=== PATIENT | male | born 1995 | race African-American/Black ===

== ENCOUNTER 2020-03-18 10:26 | Outpatient (REF) | payer OTHER, SELFPAY ==
[2020-03-18 14:08] LABS: Glucose Urine UA NEG (NEG); Leukocyte Esterase Urine NEG (NEG); Nitrite Urine NEG (NEG); Urine Blood NEG (NEG); Urine Ketones NEG (NEG); Urine Protein NEG (NEG-TRACE)
[2020-03-18 14:21] LABS: Appearance Urine CLEAR; Color Urine YELLOW
== END 2020-03-18 10:27 | disposition home or self-care (01) ==
LOC: HO.LAB 10:26
PROVIDERS: PCP Internal Medicine; Visit Provider Internal Medicine
DX: I10 Essential (primary) hypertension (principal); R35.0 Frequency of micturition; R36.9 Urethral discharge, unspecified; Z11.8 Encounter for screening for other infectious and parasitic diseases; Z11.3 Encounter for screening for infections with a predominantly sexual mode of transmission
CPT/HCPCS: 81003

== ENCOUNTER 2024-03-02 20:13 | Emergency (ER) | payer OTHER, SELFPAY ==
--- NOTE | ~2024-03-02 | XR_ITS ---
CLINICAL HISTORY: trauma 4 view right elbow Comparison: None Findings: Radial head fracture. Normal alignment. No significant loss of joint space, osteophytes, or erosions. Large joint effusion. No radiopaque foreign body. IMPRESSION: 1. Radial head fracture with elbow joint effusion This document has been electronically signed by: Marlon Nayak MD on 03/02/2024 21:54:15
--- NOTE | ~2024-03-02 | XR_ITS ---
CLINICAL HISTORY: trauma 2 view right forearm Comparison: None Findings: Radial head fracture. Elbow joint effusion. No significant arthritic change. No radiopaque foreign body. IMPRESSION: 1. Radial head fracture with elbow joint effusion This document has been electronically signed by: Marlon Nayak MD on 03/02/2024 21:55:06
[2024-03-02 20:42] VITALS: BP 120/79; PULSE 82; RESP 16; TEMP 37.2; O2SAT 98
--- NOTE | 2024-03-02 20:47 | ED.GENADULT ---
HPI - General Adult General Chief complaint: Extremity Injury, Upper Stated complaint: right elbow inj Time Seen by Provider: 03/02/24 23:43 History of Present Illness ED Provider: Bree TAYLOR narrative: The patient is a 28-year-old male who injured his right arm playing basketball. He fell injured his right arm landing on an outstretched right hand. He has pain primarily in the right elbow. Related Data Previous Rx's ?Medication ?Instructions ?Recorded morphine 15 mg immediate release 15 mg PO Q6H PRN pain #12 tabs 03/03/24 tablet Allergies Allergy/AdvReac Type Severity Reaction Status Date / Time No Known Allergies Allergy Verified 03/02/24 20:47 Review of Systems Review of Systems: Yes all other systems are reviewed and are negative [facility] Past Medical History Medical History No significant past medical history Surgical History No significant past surgical history Family History Family History Other Family history non-contributory Social History Social History (Updated 03/31/20 @ 10:44 by Casey Yañez PA-C) Alcohol intake: current Alcohol intake frequency: holidays/special occasions only Substance Use Type: Marijuana Advance Directives: No Advance Directives Information Provided: No Do you have a plan to hurt others: No Plan Current occupation: [employer] ( [employer] ) Physical Exam ED Vital Signs: Vital Signs - 24 hr 03/02/24 20:42 03/03/24 00:48 Temperature 99.0 F 0 F L Pulse Rate 82 78 Respiratory Rate 16 16 Blood Pressure 120/79 118/72 Pulse Oximetry 98 98 Oxygen Delivery Method Room Air Room Air BMI result Body Mass Index 20.0 Const Other: The patient is a slim, athletic looking 28-year-old who was awake and alert, pleasant cooperative [facility] Head: Yes normal to inspection Face and sinus: Yes normal facial exam Mouth: Normal oral and palatal mucosa present and moist mucous membranes Eyes General: appearance normal, both eyes and all related structures Neck Neck: Yes full ROM Resp Effort & Inspection: normal respiratory effort Skin Other: The skin is intact. Neuro Other: The patient is awake and alert with normal mental status. He has normal sensation and motor function of the right hand. Extrem Other: The patient has tenderness around the right elbow and pain with manipulation of the right elbow. Possibly some mild soft tissue swelling of the elbow but no gross swelling. The patient has pain with flexion and extension of the elbow and with supination. The hand is neurovascularly intact. Course Course Course Narrative: RME, this is a rapid medical exam performed by Pito Kraus please refer to primary provider for complete H&P- 28-year-old male presents for evaluation of right elbow pain. The patient fell while playing basketball about an hour prior to arrival. He is unable to bend in the right elbow. Plan for x-rays of the right elbow and right forearm. There was no head trauma or loss of consciousness Medications Administered Discontinued Medications Generic Name Dose Route Start Last Admin Trade Name Freq PRN Reason Stop Dose Admin Acetaminophen 975 mg 03/02/24 20:49 03/02/24 20:50 Acetaminophen 325 Mg Tablet PO 03/02/24 20:50 975 mg ONCE ONE Administration Ketorolac Tromethamine 30 mg 03/03/24 00:05 03/03/24 00:17 Ketorolac Tromethamine 30 Mg/Ml Vial IM 03/03/24 00:06 30 mg ONCE ONE Administration Procedures Orthopedic Splinting/Casting Injury #1: Side: right Upper Extremity Injury Location: elbow Upper Extremity Immobilizer: posterior splint (long arm) Additional Comments: Orthoglass, cast padding, and padmini basndages Medical Decision Making Medical Decision Making MDM Narrative: The patient is a 28-year-old male who presents with a right elbow injury when he fell playing basketball. He has an obvious effusion on the lateral x-ray of his right elbow. There is also a nondisplaced radial head fracture apparent. I explained the injury to the patient. The patient was placed in a posterior splint and given a sling. He lives on [facility]. He was therefore given a disc of his x-rays and advised to contact a local Orthopedic office for follow-up in the next week.. a prescription for morphine tablets was provided. Discharge Plan Discharge Clinical Impression: Closed fracture of head of right radius Patient Disposition: Home, Self-Care Instructions: Elbow Fracture (ED) Additional Instructions: You have a fracture of your right radial head. This is the part of the radius bone at the elbow. The fracture is not displaced. Nondisplaced radial head fracture is usually do very well. Primary treatment is to rest the elbow for several days.. Please wear the splint and the sling. I would recommend keeping the splint on for at least several days. After several days you can try removing the splint and see if the sling alone is sufficient. You will need to see an orthopedist in the next week or 2. Please bring the disc of your x-rays to the orthopedist if you get an appointment on [facility]. If you stay in this area you can see the [place] orthopedists. For pain you may use acetaminophen (Tylenol). Take 2 extra-strength tablets at a time up to 3 times per day. Additionally I have sent a prescription for morphine tablets that you may use if needed. Prescriptions: New morphine 15 mg tablet 15 mg PO Q6H PRN (Reason: pain) Qty: 12 0RF Rx Instructions: Partial Fill upon patient request. Referrals: [facility] [place] [facility] [Provider Group] (Nondisplaced radial head fracture) Interventions: ED Discharge Assessment Last Done: 03/03/24 00:48 Discharge Date/Time: 03/03/24 00:50 Print Language: Bel[place]ian
[2024-03-02] MEDS: Acetaminophen 325 MG TABLET 975 MG PO (20:50)
[2024-03-03] MEDS: Ketorolac Tromethamine 30 MG/ML VIAL IM (00:17)
--- NOTE | 2024-03-03 00:24 | PC.NURSE ---
MD at bedside, splint and sling applied. Pt medicated per MAY.
[2024-03-03 00:48] VITALS: BP 118/72; PULSE 78; RESP 16; TEMP -17.7; TEMP 0; O2SAT 98
== END 2024-03-03 00:50 | disposition home or self-care (01) ==
PROVIDERS: Emergency Provider Emergency Medicine
DX: S52.121A Displaced fracture of head of right radius, initial encounter for closed fracture (principal); W19.XXXA Unspecified fall, initial encounter; Y93.67 Activity, basketball; Y92.9 Unspecified place or not applicable; Y99.9 Unspecified external cause status; M25.521 Pain in right elbow
CPT/HCPCS: 29105; 73080; 73090; 96372; 99283; 99284; J1885

== ENCOUNTER → 2024-03-02 20:48 | Outpatient (BNV) | payer SELFPAY | PROVIDERS: Visit Provider Specialist | DX: S52.121A Displaced fracture of head of right radius, initial encounter for closed fracture (principal) | CPT/HCPCS: 73080; 73090 ==

== ENCOUNTER 2024-03-09 09:19 | Outpatient (REF) | payer OTHER, SELFPAY ==
--- NOTE | ~2024-03-09 | XR_ITS ---
EXAMINATION: XR ELBOW 3 VIEWS RIGHT HISTORY: M25.529 - Pain in unspecified elbow COMPARISON: Comparison is made with the prior examination dated 03/02/2024. FINDINGS: Three views of the right elbow are submitted. Osseous mineralization is normal. There is a nondisplaced fracture of the radial head as seen previously. The fracture line remains visible. No additional fracture is seen. There is no dislocation. The joint spaces are preserved. There is a joint effusion with elevation of the anterior and posterior fat pads. XR/XR elbow RT min 3V IMPRESSION: Nondisplaced fracture of the radial head with an associated joint effusion. Electronically signed by: Merrick Rivera MD 03/11/2024 03:41 PM KAYLAN
--- OUTSIDE RECORDS SUMMARY | 2024-03-09 09:47 | XMS_ITS | Continuity of Care Document ---
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 It does not include entries that were removed or entered in error. Problem Status Onset Date Problem Type Date of Resolution Comments Source Alcohol abuse, uncomplicated Active 11/12/2016 Condition DoD Cannabis use, unspecified, uncomplicated Active 11/12/2016 Condition DoD Cocaine use, unspecified, uncomplicated Active 11/12/2016 Condition DoD Allergies, Adverse Reactions, Alerts Combined list of allergies from Department of Defense and Veterans Affairs facilities. It does not include entries that were removed or entered in error. Substance Category Reaction Severity Reaction type Status Date Reported Comments Source No Known Allergies Drug allergy (disorder) active 11/23/2014 Valentin [place] Immunizations Combined list of available immunizations from the Department of Defense and Veterans Affairs facilities. Immunization Series Date Given Administered By Site Reaction Lot Number CVX Code Drug Wad Impregnator Status Comments Source COVID-19 (Biomoda), VECTOR-NR, RS-AD26, PF, 0.5 ML 1 2020 212 complet ed JSN; [id number]; 1 [facility] typhoid Vi capsular polysaccharid e vaccine 1 2016 BJ KHOURY [id number] Sanofi Pasteur (PMC) complet ed typhoid Vi capsular polysacch aride vaccine DoD Influenza, injectable, quadrivalent, preservative free 1 2016 [id number] Seqirus (SEQ) comple t ed Influenza , injectabl e, quadrival ent, preservat junior free DoD Influenza, injectable, MDCK, preservative free, quadrivalent 2016 GORSLINE, () Not Given Influenza , injectabl e, MDCK, preservat junior free, quadrival ent DoD influenza, seasonal, injectable 2015 [id number] Unknown complet ed influenza , seasonal, injectabl e 01/03/16 Given Ambulat ory Pharmac y Influenza, seasonal, injectable 1 2015 [id number] 141 Unknown (UNK) comple t ed Influenza , seasonal, injectabl e DoD hepatitis B adult vaccine 2015 Abhi vidal Arm [id number] 43 GlaxoSmithKli ne complet ed hepatitis B adult vaccine 05/24/15 Given Ambulat ory Pharmac y hepatitis B vaccine, adult dosage 1 2015 GORDY RAMÍREZ [id number] 43 SmithKline (SKB) complet ed hepatitis B vaccine, adult dosage DoD influenza, live, intranasal,qu adrivalent 2014 [id number] 149 [email or web address] comple t ed influenza , live, intranasa l,quadriv alent 12/22/14 Given Ambulat ory Pharmac y influenza, live, intranasal, quadrivalent 1 2014 [id number] 149 MedIBankofpoker[employer]. (MED) complet ed influenza , live, intranasa l, quadrival ent DoD hepatitis B pediatric/ado lescent 2014 [id number] 08 GlaxoSmithKli ne complet ed hepatitis B pediatric /adolesce nt 11/23/14 Given Ambulat ory Pharmac y hepatitis B vaccine, pediatric or pediatric/ado lescent dosage 2 2014 [id number] 08 SmithKline (SKB) complet ed hepatitis B vaccine, pediatric or pediatric /adolesce nt dosage DoD adenovirus vaccine, live 2014 [id number] 143 Teva Pharmaceutica ls complet ed adenoviru s vaccine, live 09/20/14 Given Ambulat ory Pharmac y hepatitis B pediatric/ado lescent 2014 [id number] 08 GlaxoSmithKli ne complet ed hepatitis B pediatric /adolesce nt 09/20/14 Given Ambulat ory Pharmac y measles, mumps and rubella virus vaccine 1 2014 UNK 03 Unknown (UNK) Not Given measles, mumps and rubella virus vaccine DoD hepatitis B vaccine, pediatric or pediatric/ado lescent dosage 1 2014 [id number] 08 SmithKline (SKB) complet ed hepatitis B vaccine, pediatric or pediatric /adolesce nt dosage DoD varicella virus vaccine 1 2014 UNK 21 Unknown (UNK) Not Given varicella virus vaccine DoD hepatitis A vaccine, adult dosage 1 2014 UNK 52 Unknown (UNK) Not Given hepatitis A vaccine, adult dosage DoD Adenovirus, type 4 and type 7, live, oral 1 2014 [id number] 143 [employer] (BRR) complet ed Adenoviru s, type 4 and type 7, live, oral DoD tetanus, diphtheria, acellular pertu is 2014 [id number] 115 sanofi pasteur complet ed tetanus, diphtheri a, acellular pertussis 09/16/14 Given Ambulat ory Pharmac y meningococcal A,C,Y,W-135 (MCV4P) 2014 [id number] 114 GlaxoSmithKli ne complet ed meningoco ccal A,C,Y,W-1 35 (MCV4P) 09/16/14 Given Ambulat ory Pharmac y poliovirus vaccine, inactivated 2014 [id number] 10 sanofi pasteur complet ed polioviru s vaccine, inactivat ed 09/16/14 Given Ambulat ory Pharmac y poliovirus vaccine, inactivated 1 2014 [id number] 10 Sanofi Pasteur (PMC) complet ed polioviru s vaccine, inactivat ed DoD meningococcal polysaccharid e (groups A, C, Y and W-135) diphtheria toxoid conjugate vaccine (MCV4P) 1 2014 [id number] 114 SmithKline (SKB) complet ed meningoco ccal polysacch aride (groups A, C, Y and W-135) diphtheri a toxoid conjugate vaccine (MCV4P) DoD tetanus toxoid, reduced diphtheria toxoid, and acellular pertu is vaccine, adsorbed 1 2014 [id number] 115 Sanofi Pasteur (PMC) complet ed tetanus toxoid, reduced diphtheri a toxoid, and acellular pertussis vaccine, adsorbed DoD Vital Signs Combined list of inpatient and outpatient Vital Signs from Department of Defense and Veterans Affairs, ranging from 12 months to all on record, depending upon the facility. Vital Sign Value Date Comments Source No data available for this section Ambulatory Pharmacy Encounters Combined list of: 1) Encounters from Department of Veterans Affairs facilities going back up to thelast 18 months. 2) Encounters from the Department of Defense facilities going back up to 280 months. Location Location Details Encounter Type Encounter Number Reason For Visit Attending Provider ADM Date DC Date Status Disposition Source [place] [place] OUTPATIENT [id number] MARCELINO BURGOS 09/16 Released w/o Limitations [place]) [place] OUTPATIENT [id number] Notes Entered by: RAMÓN ROGER 17 Sep 2014 0756 ------- ------- ------- ------- -- hearing test RAMÓN YATES 09/17 Released w/o Limitations [place] ) [place] [id number] Notes Entered by: TORSTEN WILKERSON RA 20 Sep 2014 0613 ------- ------- ------- ------- -- IMM TRANG MENDIETA 09/20 Released w/o Limitations [place] ) [place]IENT [id number] Notes Entered by: KELECHI CASTAÑEDA 23 Nov 2014 0813 ------- ------- ------- ------- -- IMM-HEP B(P) ROSALBA SANCHEZ 11/23 Released w/o Limitations [place] OUTPATIENT [id number] Notes Entered by: KELECHI CASTAÑEDA 22 Dec 2014 1012 ------- ------- ------- ------- -- IMM-FLU MIST LEAH THOMPSON 12/22 Released w/o Limitations [place]) REANNA Salmon([facility]) OUTPATIENT [id number] Notes Entered by: SA HAMLET RAMÍREZ 24 May 2015 1048 ------- ------- ------- ------- -- ENGERIX B (ADULT) DESIREEGORDY Alexander 05/23 Released w/o Limitations Av [facility] REANNA Malcolm([facility] l [facility]ams [facility]) REANNA Salmon([facility] [address]) OUTPATIENT [id number] Notes Entered by: Alexander CONNOLLY 22 Jun 2015 1617 ------- ------- ------- ------- -- STEPHIE GALVAN 06/22 Released w/o Limitations Av [facility] REANNA Malcolm([facility] [address]) REANNA Salmon([facility]) OUTPATIENT [id number] Notes Entered by: EDMUNDO MALIK 13 Sep 2015 1111 ------- ------- ------- ------- -- p/u BARBRA Guy 09/12 Released w/o Limitations Av [facility] REANNA Malcolm([facility]) REANNA Salmon([facility]) OUTPATIENT [id number] REE / CL FITTING BELL MARSHALL 10/06 Released w/o Limitations Av [facility] REANNA Malcolm([facility]) REANNA Salmon([facility]) OUTPATIENT [id number] Notes Entered by: EDMUNDO MALIK 17 Oct 2015 1355 ------- ------- ------- ------- -- p/u glasses JOAN DAWSON 10/16 Released w/o Limitations REANNA Bain([facility]) REANNA Salmon([facility] [address]) OUTPATIENT [id number] ALEXIS Truong I 10/18 Released w/o Limitations REANNA Bain([facility] [address]) REANNA Salmon([facility] [address]) TELE CONSULT [id number] Notes Entered by: FR KAJAL ARRIAGA I 17 Apr 2016 1454 ------- ------- ------- ------- -- STI janiyai corry lab results ALEXIS ARRIAGA I 04/17 REANNA Bain([place] [address]) REANNA Salmon([place] [address]) TELE CONSULT [id number] Notes Entered by: LEATHA MAURER 25 Jul 2016 1304 ------- ------- ------- ------- -- STD Check ROOPA MAURER 07/25 REANNA Bain([place] [address]) REANNA Salmon([place] [address]) OUTPATIENT [id number] [facility] STEPHIE STRINGER 08/18 Released w/o Limitations REANNA Bain([place] [address]) REANNA Salmon([place] [address]) OUTPATIENT [id number] [place] STD CHECK STEPHIE STRINGER 08/24 Released w/o Limitations REANNA Bain([place] [address]) REANNA Salmon([place] [address]) OUTPATIENT [id number] Notes Entered by: MELITON FELDMAN 27 Sep 2016 1050 ------- ------- ------- ------- -- Annual Audiogr am MARIIA MAYO 09/27 Released w/o Limitations REANNA Bain([place] [address]) REANNA Salmon([place] [address]) OUTPATIENT [id number] Notes Entered by: MELITON FELDMAN 13 Nov 2016 1347 ------- ------- ------- ------- -- Annual Audiogr am MARIIA MAYO 11/13 Released w/o Limitations [place] [place] [address]) Av [facility] Valentin [place]) OUTPATIENT [id number] Chapter (Separa tiyahaira) DARLENE CERNA 11/14 Released w/o Limitations [place] [facility] [place]) Av [facility] [place] [address]) OUTPATIENT [id number] CHAPTER ANDREY LUCIA 11/14 Released w/o Limitations [place] [facility] [place] [address]) Av [facility] Valentin [place]idal [place] OUTPATIENT [id number] ree/clx OSCAR ROLLINS 11/20 Released w/o Limitations Av [facility] Valentin [place]) Av [facility] [place] [address]) OUTPATIENT [id number] PDHA/SR P CARMEL CASE 02/05 [facility] [place] [place] [address]) Procedures Combined list of: 1) Procedures from Department of Veterans Affairs facilities going back up to thelast 18 months, not all VA non-surgical procedures are included; 2) All procedures from the Department of Defense facilities. Procedure Procedure Type Code Date Perfomer Comments Sourc e No data available for this section Ambulato ry Pharmacy Psychiatric Evaluation Explanation Of Exam Results Psychiatric Evaluation Explanation Of Exam Results 50022 2017 CARLOS ESCAMILLA [facility] Computerized Corneal Topography Computerized Corneal Topography 87233 2016 OSCAR ROLLINS Prescription And Fitting Bilateral Corneal Lenses (Not For Aphakia) Prescription And Fitting Bilateral Corneal Lenses (Not For Aphakia) 93507 2016 OSCAR ROLLINS Determination Of Refractive State Determination Of Refractive State 08154 2016 OSCAR ROLLINS Ophthalmological Prior Patient Start Comprehensive Care Ophthalmological Prior Patient Start Comprehensive Care 73107 2016 OSCAR ROLLINS Psychometric Emotional / Behavioral A e [facility] Psychometric Emotional / Behavioral Assessment 58108 2016 YARELYDAYRON GREENE [place] Psychiatric Diagnostic Evaluation Psychiatric Diagnostic Evaluation 54589 2016 DAYRON FONTANA [place] Visual Function Screening Visual Function Screening 76589 2016 DARLENE CERNA [facility] Psychometric Emotional / Behavioral A e ment Psychometric Emotional / Behavioral Assessment 94613 2016 CARLOS ESCAMILLA [place] Psychiatric Diagnostic Evaluation Psychiatric Diagnostic Evaluation 55296 2016 ALTEPETERCARLOS Alexander [place] Threshold Audiogram (Pure Tone) Automated Threshold Audiogram (Pure Tone) Automated 0208T 2016 MARIIA MAYO Physician Supervised Services Provision Of Special Supplies Physician Supervised Services Provision Of Special Supplies 61688 2016 MARIIA MAYO Physician Supervised Services Provision Of Special Supplies Physician Supervised Services Provision Of Special Supplies 35353 2016 MARIIA MAYO Threshold Audiogram (Pure Tone) Automated Threshold Audiogram (Pure Tone) Automated 0208T 2016 MARIIA MAYO Screening Test Of Visual Acuity, Quantitative, Bilateral Screening Test Of Visual Acuity, Quantitative, Bilateral 97150 2016 STEPHIE STRINGER Venous Pre ure Venous Pressure 15321 2016 STEPHIE STRINGER Computerized Corneal Topography Computerized Corneal Topography 61677 2015 BELL MARSHALL Prescription And Fitting Bilateral Corneal Lenses (Not For Aphakia) Prescription And Fitting Bilateral Corneal Lenses (Not For Aphakia) 64373 2015 BELL MARSHALL Spectacles Services Fitting Monofocal Except For Aphakia Spectacles Services Fitting Monofocal Except For Aphakia 61714 2015 BELL MARSHALL Determination Of Refractive State Determination Of Refractive State 31040 2015 BELL MARSHALL Ophthalmological New Patient Start Comprehensive Care Ophthalmological New Patient Start Comprehensive Care 76200 2015 BELL MARSHALL Screening Test Of Visual Acuity, Quantitative, Bilateral Screening Test Of Visual Acuity, Quantitative, Bilateral 62903 2015 STEPHIE STRINGER Venous Pre ure Venous Pressure 62389 2015 STEPHIE STRINGER Hepatitis B Vaccine (Active) Adult Dosage Hepatitis B Vaccine (Active) Adult Dosage 80021 2015 DESIREE, GORDY A Hep B - Adult; Series #: 1; 1.0 mL; IM; Left Arm; [facility] [employer]; Lot: [id number]; VIS given (Brianna: 04/05/11). DoD Immunization Administration By Injection, One Vaccine Immunization Administration By Injection, One Vaccine 461602015 GORDY RAMÍREZ DoD Influenza Virus Vaccine Live Attenuated Intranasal Quadrivalent Influenza Virus Vaccine Live Attenuated Intranasal Quadrivalent 38589 2014 LEAH THOMPSON [facility] Immunization Admin By Intranasal / Oral Route One Vaccine Immunization Admin By Intranasal / Oral Route One Vaccine 42776 2014 LEAH THOMPSON [facility] Hepatitis B Vaccine (Active); Pediatric/Adolesce nt 3 Dose Schedule Hepatitis B Vaccine (Active); Pediatric/Adolesce nt 3 Dose Schedule 97148 2014 NYA SHEIKH [facility] Immunization Administration By Injection, One Vaccine Immunization Administration By Injection, One Vaccine 695192014 NYA SHEIKH [facility] Injection, penicillin g benzathine, 100,000 units 2014 TRANG MENDIETA Visit for an IM injection of 1.2 million/units per 2 mL of Bicillin L-A (Penicillin G Benxathine injectable suspension). Was given in the Left upper quadrant, left buttock. Patient was observed for 15 min with no adverse reactions. DoD Immunization Administration By Injection, One Vaccine Immunization Administration By Injection, One Vaccine 458582014 TRANG MENDIETA [facility] Immunization Administration By Injection, Each Additional Vaccine Immunization Administration By Injection, Each Additional Vaccine [id number] TRANG MENDIETA [facility] Tdap Vaccine Tdap Vaccine 963162014 TRANG MENDIETA Visit for an IM injection of 0.5mL of Boostrix (Tetanus and Diphtheria Toxoids and Acellular Pertussis). Was given in the Right Deltoid. Patient was observed for 15 min with no adverse reactions. [facility] Meningococcal Polysaccharide Diphtheria Toxoid Conjugate Vaccine 2014 TRANG MENDIETA Visit for an IM injection of 0.5mL of Meningococcal Vaccine (Menactra). Was given in the Left Deltoid. Patient was observed for 15 min with no adverse reactions. DoD Vaccines Viral Polio, Inactivated Vaccines Viral Polio, Inactivated 043022014 TRANG MENDIETA Visit for an IM injection of 0.5mL of IPOL (Poliovirus Vaccine Inactivated). Was given in the Right Deltoid. Patient was observed for 15 min with no adverse reactions. [facility] Hep B Vaccine (Active); Adolescent (2 Dose Schedule) Hep B Vaccine (Active); Adolescent (2 Dose Schedule) 77360 2014 TRANG MENDIETA Visit for an IM injection of 0.5mL of Hepatitis B (Engerix-B) pediatric dose. Was given in the Right Deltoid. Patient was observed for 15 min with no adverse reactions. [facility] Immunization Admin Intranasal / Oral Each Additional Vaccine Immunization Admin Intranasal / Oral Each Additional Vaccine 96386 2014 TRANG MENDIETA [facility] Vaccines Adenovirus Type 4 Live, For Oral Use Vaccines Adenovirus Type 4 Live, For Oral Use 22049 2014 TRANG MENDIETA A single vaccine dose adminstered orally. [facility] Vaccines Adenovirus Type 7 Live, For Oral Use Vaccines Adenovirus Type 7 Live, For Oral Use 89932 2014 TRANG MENDIETA A single vaccine dose adminstered orally. [facility] Physician Supervised Injection Intramuscular Antibiotic Physician Supervised Injection Intramuscular Antibiotic 97800 2014 TRANG MENDIETA [facility] Threshold Audiogram (Pure Tone) Automated Threshold Audiogram (Pure Tone) Automated 0208T 2014 RAMÓN YATES [facility] INFLUENZA VIRUS VACCINE, QUADRIVALENT, LIVE (LAIV4), FOR INTRANASAL USE 2014 [facility] HEPATITIS B VACCINE (HEPB), PEDIATRIC/ADOLESCE NT DOSAGE, 3 DOSE SCHEDULE, FOR INTRAMUSCULAR USE 2014 [facility] INJECTION, PENICILLIN G BENZATHINE, 100,000 UNITS 2014 [facility] PURE TONE AUDIOMETRY (THRESHOLD), AUTOMATED; AIR ONLY 2014 [facility] INTERPRETATION OR EXPLANATION OF RESULTS OF PSYCHIATRIC, OTH MEDICAL EXAMS/PROCEDURES, OR OTH ACCUMULATED DATA TO FAMILY OR OTH RESPONSIBLE PERSONS,OR ADVISING THEM HOW TO ASSIST PATIENT 2017 [facility] COMPUTERIZED CORNEAL TOPOGRAPHY, UNILATERAL OR BILATERAL, WITH INTERPRETATION AND REPORT 2016 [facility] BRIEF EMOTIONAL/BEHAVIOR AL ASSESSMENT (EG, DEPRESSION INVENTORY, ATTENTION-DEFICIT/ HYPERACTIVITY DISORDER [ADHD] SCALE), WITH SCORING AND DOCUMENTATION, PER STANDARDIZED INSTRUMENT 2016 [facility] VIS FUNCT SCREEN,AUTOMAT/RAFAT I-AUTOMAT BILAT QUANT DETERM VISUAL ACUITY,OCULAR ALIGN,COLOR VISION,PSEUDOISOCH ROMAT PLATES,& FIELD VIS (MAY INC ALL/SOME SCRN DETERM FOR CONTRAST SENSITIV,VIS UND GLARE) 2016 DoD SUPP &MATERIAL (EXCEPT SPECTACLE),PROVID, THE PHYS/OTH QUALIFIED HEALTH STACKER TENDER OVER &ABOVE THOSE USUALLY INCLD W THE OFFICE VISIT/OTH SER RENDERED (LIST DRUG,TRAYS,SUPP,OR MATERIAL PROVID) 2016 DoD BRIEF EMOTIONAL/BEHAVIOR AL ASSESSMENT (EG, DEPRESSION INVENTORY, ATTENTION-DEFICIT/ HYPERACTIVITY DISORDER [ADHD] SCALE), WITH SCORING AND DOCUMENTATION, PER STANDARDIZED INSTRUMENT 2016 DoD SUPP &MATERIAL (EXCEPT SPECTACLE),PROVID, THE PHYS/OTH QUALIFIED HEALTH STACKER TENDER OVER &ABOVE THOSE USUALLY INCLD W THE OFFICE VISIT/OTH SER RENDERED (LIST DRUG,TRAYS,SUPP,OR MATERIAL PROVID) 2016 DoD SCREENING TEST OF VISUAL ACUITY, QUANTITATIVE, BILATERAL 2016 DoD COMPUTERIZED CORNEAL TOPOGRAPHY, UNILATERAL OR BILATERAL, WITH INTERPRETATION AND REPORT 2015 DoD DETERMINATION OF VENOUS PRESSURE 2015 DoD IMMUNIZATION ADMINISTRATION (INCLUDES PERCUTANEOUS, INTRADERMAL, SUBCUTANEOUS, OR INTRAMUSCULAR INJECTIONS); 1 VACCINE (SINGLE OR COMBINATION VACCINE/TOXOID) 2015 DoD Social History Combined list of available smoking, tobacco, and other social history from Department of Defense and Veterans Affairs facilities. Social History Type Response Date Comment Sourc e Male 12/17/2016 Ambulatory Pha rmacy Sexual Orientation Ambula tory Pharmacy Gender identity Ambulator y Pharmacy This section is an empty soc ial history section. DoD Assessment and Plan Combined list of future care activities from Department of Defense and Veterans Affairs facilities (e.g., assessment and plan notes, appointments, orders, and referrals). Additional future care activities may be listed in the Plan of Care section. Result Assessment and Plan Date Source Assessment and Plan No data available for this section 03/09/2024 Ambulatory Pharmacy Functional Status Combined list of recent functional and cognitive assessments recorded at Department of Defense and Veterans Affairs (VA).VA Functional [place] Measurement (FIM) Scale: 1 = Total Assistance (Subject = 0% +), 2 = Maximal Assistance (Subject = 25% +), 3 = Moderate Assistance (Subject = 50% +), 4 = Minimal Assistance (Subject = 75% +), 5 = Supervision, 6 = Modified [place] (Device), 7 = Complete [place] (Timely, Safely). Assessment Date/Time Source Assessment Type Assessment Skill Assessment Score Assessment Details No data available for this section
== END 2024-03-09 09:20 | disposition home or self-care (01) ==
LOC: HO.HOSX 09:19
PROVIDERS: Visit Provider Physician Assistant
DX: M25.521 Pain in right elbow (principal); S52.121A Displaced fracture of head of right radius, initial encounter for closed fracture
CPT/HCPCS: 73080; 99202

== ENCOUNTER 2024-03-09 10:56 | Outpatient (AMB) | payer OTHER, SELFPAY ==
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
--- OUTSIDE RECORDS SUMMARY | 2024-03-09 12:27 | XMS_ITS | Continuity of Care Document ---
Author Name [facility] Organization [facility] Care Team Providers Care Fixed Income Trading Vice President Name Role Phone [facility] Unavailable Unavailable Problems [...] Drug allergy (disorder) active 11/23/2014 Valentin Garcia [place] Immunizations Combined list of available immunizations from the Department of Defense and Veterans Affairs facilities. 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 Status Comments Source COVID-19 ([employer]), VECTOR-NR, RS-AD26, PF, 0.5 ML 1 2020 212 complet ed JSN; [id number]; 1 [facility] typhoid Vi capsular polysaccharid e vaccine 1 2016 BJ KHOURY [id number] 101 Sanofi Pasteur (PMC) complet ed typhoid Vi capsular polysacch aride vaccine DoD Influenza, injectable, quadrivalent, preservative free 1 2016 [id number] Seqirus (SEQ) comple t ed Influenza , injectabl e, quadrival ent, preservat junior free DoD Influenza, injectable, MDCK, preservative free, quadrivalent 2016 GORSLINE, () Not Given Influenza , injectabl e, MDCK, preservat junior free, quadrival ent DoD influenza, seasonal, injectable 2015 [id number] Unknown complet ed influenza , seasonal, injectabl e 01/03/16 Given Ambulat ory Pharmac y Influenza, seasonal, injectable 1 2015 [id number] 141 Unknown (UNK) comple t ed Influenza , seasonal, injectabl e DoD hepatitis B adult vaccine 2015 Abhi vidal Arm [id number] 43 GlaxoSmithKli ne complet ed hepatitis B adult vaccine 05/24/15 Given Ambulat ory Pharmac y hepatitis B vaccine, adult dosage 1 2015 GORDY RAMÍREZ [id number] 43 SmithKline (SKB) complet ed hepatitis B vaccine, adult dosage DoD influenza, live, intranasal,qu adrivalent 2014 [id number] 149 MedimmDashbid Inc comple t ed influenza , live, intranasa l,quadriv alent 12/22/14 Given Ambulat ory Pharmac y influenza, live, intranasal, quadrivalent 1 2014 [id number] 149 MedIGraceful Tables, Inc. (MED) complet ed influenza , live, [...] nt dosage DoD adenovirus vaccine, live 2014 [id number] 143 Teva Pharmaceutica ls complet ed adenoviru [...] and type 7, live, oral 1 2014 [id number] 143 Robertson Laboratories (BRR) complet ed Adenoviru s, type 4 and type 7, live, oral DoD tetanus, diphtheria, acellular pertu is 2014 [id number] 115 sanofi pasteur complet ed tetanus, diphtheri a, acellular pertussis 09/16/14 Given Ambulat ory Pharmac y meningococcal A,C,Y,W-135 (MCV4P) 2014 [id number] 114 GlaxoSmithKli ne complet ed meningoco ccal A,C,Y,W-1 35 (MCV4P) 09/16/14 Given Ambulat ory Pharmac y poliovirus vaccine, inactivated 2014 [id number] 10 sanofi pasteur complet ed polioviru s vaccine, inactivat ed 09/16/14 Given Ambulat ory Pharmac y poliovirus vaccine, inactivated 1 2014 [id number] 10 Sanofi Pasteur (PMC) complet ed polioviru s vaccine, inactivat ed DoD meningococcal polysaccharid e (groups A, C, Y and W-135) diphtheria toxoid conjugate vaccine (MCV4P) 1 2014 [id number] 114 SmithKline (SKB) complet ed meningoco ccal polysacch aride (groups A, C, Y and W-135) diphtheri a toxoid conjugate vaccine (MCV4P) DoD tetanus toxoid, reduced diphtheria toxoid, and acellular pertu is vaccine, adsorbed 1 2014 [id number] 115 Sanofi Pasteur (PMC) complet ed tetanus [...] [place] ) OUTPATIENT [id number] MARCELINO BURGOS 09/16 Released w/o Limitations [place]([facility] p[facility]omet ry) [place]) OUTPATIENT [id number] Notes Entered by: RAMÓN ROGER 17 Sep 2014 0756 ------- ------- ------- ------- -- hearing test RAMÓN YATES 09/17 Released w/o Limitations [place] ) [place] OUTPATIENT [id number] Notes Entered by: TORSTEN WILKERSON RA 20 Sep 2014 0613 ------- ------- ------- ------- -- IMM TRANG MENDIETA 09/20 Released w/o Limitations [place] ) [place]) OUTPATIENT [id number] Notes Entered by: KELECHI CASTAÑEDA 23 Nov 2014 0813 ------- ------- ------- ------- -- IMM-HEP B(P) ROSALBA SANCHEZ 11/23 Released w/o Limitations [place] [place]) OUTPATIENT [id number] Notes Entered by: KELECHI CASTAÑEDA 22 Dec 2014 1012 ------- ------- ------- ------- -- IMM-FLU MIST LEAH THOMPSON 12/22 Released w/o Limitations [place] REANNA Salmon([facility] Physical Exams Cl) OUTPATIENT [id number] Notes Entered by: SA HAMLET RAMÍREZ 24 May 2015 1048 ------- ------- ------- ------- -- ENGERIX B (ADULT) DESIREEGORDY Alexander 05/23 Released w/o Limitations [facility] REANNA Malcolm([facility] Physica l Exams Cl) REANNA Salmon([facility] [address]) OUTPATIENT [id number] Notes Entered by: Alexander CONNOLLY 22 Jun 2015 1617 ------- ------- ------- ------- -- STEPHIE GALVAN 06/22 Released w/o Limitations [facility] REANNA Malcolm([facility] [address]) REANNA Salmon([facility]) OUTPATIENT [id number] Notes Entered by: EDMUNDO MALIK 13 Sep 2015 1111 ------- ------- ------- ------- -- p/u BARBRA Guy 09/12 Released w/o Limitations [facility] REANNA Malcolm([facility]) REANNA Salmon([facility]) OUTPATIENT [id number] REE / CL FITTING BELL MARSHALL 10/06 Released w/o Limitations [facility] REANNA Malcolm([facility]) REANNA Salmon([facility]) OUTPATIENT [id number] Notes Entered by: EDMUNDO MALIK 17 Oct 2015 1355 ------- ------- ------- ------- -- p/u glasses JOAN DAWSON 10/16 Released w/o Limitations REANNA Bain([facility]) REANNA Salmon([facility] [address]) OUTPATIENT [id number] ALEXIS Truong I 10/18 Released w/o Limitations REANNA Bain([facility] [address]) REANNA Salmon([facility] [address]) TELE CONSULT [id number] Notes Entered by: FR KAJAL ARRIAGA I 17 Apr 2016 1454 ------- ------- ------- ------- -- STI janiyai corry lab results ALEXIS ARRIAGA I 04/17 REANNA Bain([place] [address]) REANNA Salmon([place] [address]) TELE CONSULT [id number] Notes Entered by: LEATHA MAURER 25 Jul 2016 1304 ------- ------- ------- ------- -- STD Check ROOPA MAURER 07/25 REANNA Bain([place] [address]) REANNA Salmon([place] [address]) OUTPATIENT [id number] [facility] STEPHIE STRINGER 08/18 Released w/o Limitations ERANNA Bain([place] [address]) REANNA Salmon([place] [address]) OUTPATIENT [id number] IV IL STD CHECK STEPHIE STRINGER 08/24 Released w/o Limitations REANNA Bain([place] [address]) REANNA Salmon([place] [address]) OUTPATIENT [id number] Notes Entered by: MELITON FELDMAN 27 Sep 2016 1050 ------- ------- ------- ------- -- Annual Audiogr am MARIIA MAYO 09/27 Released w/o Limitations REANNA Bain([place] [address]) REANNA Salmon([place] [address]) OUTPATIENT [id number] Notes Entered by: MELITON FELDMAN 13 Nov 2016 1347 ------- ------- ------- ------- -- Annual Audiogr am MARIIA MAYO 11/13 Released w/o Limitations [place] [facility] [place] [address]) [facility] [place] OUTPATIENT [id number] Chapter (Separa tion) DARLENE CERNA 11/14 Released w/o Limitations [place] [facility] [place]) [place] [place] [facility] [place]idal [place] [address]) OUTPATIENT [id number] CHAPTER ANDREY LUCIA 11/14 Released w/o Limitations [place] [facility] [place] [address]) [facility] [place]) OUTPATIENT [id number] ree/clx OSCAR ROLLINS 11/20 Released w/o Limitations [place] [facility] [place]) [facility] [place] [address]) OUTPATIENT [id number] PDHA/SR P CARMEL CASE 02/05 [facility]o Limitations [facility] [place] [address]) Procedures Combined list of: 1) Procedures from Department of Veterans Affairs facilities going back up to thelast 18 months, not all VA non-surgical procedures are included; 2) All procedures from the Department of Defense facilities. Procedure Procedure Type Code Date Perfomer Comments Sourc e Psychiatric Evaluation Explanation Of Exam Results Psychiatric Evaluation Explanation Of Exam Results 68375 2017 CARLOS ESCAMILLA [facility] Computerized Corneal Topography Computerized Corneal Topography 46304 2016 OSCAR ROLLINS [facility] Prescription And Fitting Bilateral Corneal Lenses (Not For Aphakia) Prescription And Fitting Bilateral Corneal Lenses (Not For Aphakia) 29019 2016 OSCAR ROLLINS Determination Of Refractive State Determination Of Refractive State 20285 2016 OSCAR ROLLINS Ophthalmological Prior Patient Start Comprehensive Care Ophthalmological Prior Patient Start Comprehensive Care 44621 2016 OSCAR ROLLINS Psychometric Emotional / Behavioral A e ment Psychometric Emotional / Behavioral Assessment 23555 2016 DAYRON FONTANA [facility] Psychiatric Diagnostic Evaluation Psychiatric Diagnostic Evaluation 81771 2016 DAYRON FONTANA [place] Visual Function Screening Visual Function Screening 67499 2016 DARLENE CERNA Psychometric Emotional / Behavioral A e ment Psychometric Emotional / Behavioral Assessment 79958 2016 CARLOS ESCAMILLA [place] Psychiatric Diagnostic Evaluation Psychiatric Diagnostic Evaluation 99325 2016 ANDI CARLOS Alexander [place] Threshold Audiogram (Pure Tone) Automated Threshold Audiogram (Pure Tone) Automated 0208T 2016 MARIIA MAYO Physician Supervised Services Provision Of Special Supplies Physician Supervised Services Provision Of Special Supplies 70872 2016 MARIIA MAYO Physician Supervised Services Provision Of Special Supplies Physician Supervised Services Provision Of Special Supplies 49576 2016 MARIIA MAYO Threshold Audiogram (Pure Tone) Automated Threshold Audiogram (Pure Tone) Automated 0208T 2016 MARIIA MAYO Screening Test Of Visual Acuity, Quantitative, Bilateral Screening Test Of Visual Acuity, Quantitative, Bilateral 47761 2016 STEPHIE STRINGER Venous Pre ure Venous Pressure 14474 2016 STEPHIE STRINGER Computerized Corneal Topography Computerized Corneal Topography 70775 2015 BELL MARSHALL Prescription And Fitting Bilateral Corneal Lenses (Not For Aphakia) Prescription And Fitting Bilateral Corneal Lenses (Not For Aphakia) 73214 2015 BELL MARSHALL Spectacles Services Fitting Monofocal Except For Aphakia Spectacles Services Fitting Monofocal Except For Aphakia 54528 2015 BELL MARSHALL Determination Of Refractive State Determination Of Refractive State 80226 2015 BELL MARSHALL Ophthalmological New Patient Start Comprehensive Care Ophthalmological New Patient Start Comprehensive Care 75108 2015 BELL MARSHALL Screening Test Of Visual Acuity, Quantitative, Bilateral Screening Test Of Visual Acuity, Quantitative, Bilateral 18607 2015 STEPHIE STRINGER Venous Pre ure Venous Pressure 19848 2015 STEPHIE STRINGER Hepatitis B Vaccine (Active) Adult Dosage Hepatitis B Vaccine (Active) Adult Dosage 09329 2015 GORDY RAMÍREZ Hep B - Adult; Series #: 1; 1.0 mL; IM; Left Arm; [facility]: [employer]; Lot: [id number]; VIS given (Brianna: 04/05/11). DoD Immunization Administration By Injection, One Vaccine Immunization Administration By Injection, One Vaccine 921862015 GORDY RAMÍREZ [facility] Influenza Virus Vaccine Live Attenuated Intranasal Quadrivalent Influenza Virus Vaccine Live Attenuated Intranasal Quadrivalent 23537 2014 LEAH THOMPSON [facility] Immunization Admin By Intranasal / Oral Route One Vaccine Immunization Admin By Intranasal / Oral Route One Vaccine 12773 2014 LEAH THOMPSON [facility] Hepatitis B Vaccine (Active); Pediatric/Adolesce nt 3 Dose Schedule Hepatitis B Vaccine (Active); Pediatric/Adolesce nt 3 Dose Schedule 56486 2014 NYA SHEIKH [facility] Immunization Administration By Injection, One Vaccine Immunization Administration By Injection, One Vaccine 883092014 NYA SHEIKH [facility] Injection, penicillin g benzathine, 100,000 units 2014 TRANG MENDIETA Visit for an IM injection of 1.2 million/units per 2 mL of Bicillin L-A (Penicillin G Benxathine injectable suspension). Was given in the Left upper quadrant, left buttock. Patient was observed for 15 min with no adverse reactions. DoD Immunization Administration By Injection, One Vaccine Immunization Administration By Injection, One Vaccine 545052014 TRANG MENDIETA [facility] Immunization Administration By Injection, Each Additional Vaccine Immunization Administration By Injection, Each Additional Vaccine 632142014 TRANG MENDIETA [facility] Tdap Vaccine Tdap Vaccine [id number] TRANG MENDIETA Visit for an IM injection of 0.5mL of Boostrix (Tetanus and Diphtheria Toxoids and Acellular Pertussis). Was given in the Right Deltoid. Patient was observed for 15 min with no adverse reactions. [facility] Meningococcal Polysaccharide Diphtheria Toxoid Conjugate Vaccine 2014 TRANG MENDIETA Visit for an IM injection of 0.5mL of Meningococcal Vaccine (Menactra). Was given in the Left Deltoid. Patient was observed for 15 min with no adverse reactions. [facility] Vaccines Viral Polio, Inactivated Vaccines Viral Polio, Inactivated [id number] TRANG MENDIETA Visit for an IM injection of 0.5mL of IPOL (Poliovirus Vaccine Inactivated). Was given in the Right Deltoid. Patient was observed for 15 min with no adverse reactions. [facility] Hep B Vaccine (Active); Adolescent (2 Dose Schedule) Hep B Vaccine (Active); Adolescent (2 Dose Schedule) 08050 2014 TRANG MENDIETA Visit for an IM injection of 0.5mL of Hepatitis B (Engerix-B) pediatric dose. Was given in the Right Deltoid. Patient was observed for 15 min with no adverse reactions. [facility] Immunization Admin Intranasal / Oral Each Additional Vaccine Immunization Admin Intranasal / Oral Each Additional Vaccine 93804 2014 TRANG MENDIETA [facility] Vaccines Adenovirus Type 4 Live, For Oral Use Vaccines Adenovirus Type 4 Live, For Oral Use 24626 2014 TRANG MENDIETA A single vaccine dose adminstered orally. [facility] Vaccines Adenovirus Type 7 Live, For Oral Use Vaccines Adenovirus Type 7 Live, For Oral Use 82944 2014 TRANG MENDIETA A single vaccine dose adminstered orally. [facility] Physician Supervised Injection Intramuscular Antibiotic Physician Supervised Injection Intramuscular Antibiotic 85731 2014 TRANG MENDIETA [facility] Threshold Audiogram (Pure Tone) Automated Threshold Audiogram (Pure Tone) Automated 0208T 2014 RAMÓN YATES [facility] INFLUENZA VIRUS VACCINE, QUADRIVALENT, LIVE (LAIV4), FOR INTRANASAL USE 2014 [facility] HEPATITIS B VACCINE (HEPB), PEDIATRIC/ADOLESCE NT DOSAGE, 3 DOSE SCHEDULE, FOR INTRAMUSCULAR USE 2014 [facility] INJECTION, PENICILLIN G BENZATHINE, 100,000 UNITS 2014 [facility] PURE TONE AUDIOMETRY (THRESHOLD), AUTOMATED; AIR ONLY 2014 [facility] INTERPRETATION OR EXPLANATION OF RESULTS OF PSYCHIATRIC, OTH MEDICAL EXAMS/PROCEDURES, OR OTH ACCUMULATED DATA TO FAMILY OR OTH RESPONSIBLE PERSONS,OR ADVISING THEM HOW TO ASSIST PATIENT 2017 [facility] COMPUTERIZED CORNEAL TOPOGRAPHY, UNILATERAL OR BILATERAL, WITH INTERPRETATION AND REPORT 2016 [facility] BRIEF EMOTIONAL/BEHAVIOR AL ASSESSMENT (EG, DEPRESSION INVENTORY, ATTENTION-DEFICIT/ HYPERACTIVITY DISORDER [ADHD] SCALE), WITH SCORING AND DOCUMENTATION, PER STANDARDIZED INSTRUMENT 2016 [facility] VIS FUNCT SCREEN,AUTOMAT/RAFAT I-AUTOMAT BILAT QUANT DETERM VISUAL ACUITY,OCULAR ALIGN,COLOR VISION,PSEUDOISOCH ROMAT PLATES,& FIELD VIS (MAY INC ALL/SOME SCRN DETERM FOR CONTRAST SENSITIV,VIS UND GLARE) 2016 DoD SUPP &MATERIAL (EXCEPT SPECTACLE),PROVID, THE PHYS/OTH QUALIFIED HEALTH FIVE ROLL REFINER BATCH MIXER OVER &ABOVE THOSE USUALLY INCLD W THE OFFICE VISIT/OTH SER RENDERED (LIST DRUG,TRAYS,SUPP,OR MATERIAL PROVID) 2016 DoD BRIEF EMOTIONAL/BEHAVIOR AL ASSESSMENT (EG, DEPRESSION INVENTORY, ATTENTION-DEFICIT/ HYPERACTIVITY DISORDER [ADHD] SCALE), WITH SCORING AND DOCUMENTATION, PER STANDARDIZED INSTRUMENT 2016 DoD SUPP &MATERIAL (EXCEPT SPECTACLE),PROVID, THE PHYS/OTH QUALIFIED HEALTH FIVE ROLL REFINER BATCH MIXER OVER &ABOVE THOSE USUALLY INCLD W THE OFFICE VISIT/OTH SER RENDERED (LIST DRUG,TRAYS,SUPP,OR MATERIAL PROVID) 2016 DoD SCREENING TEST OF VISUAL ACUITY, QUANTITATIVE, BILATERAL 2016 DoD COMPUTERIZED CORNEAL TOPOGRAPHY, UNILATERAL OR BILATERAL, WITH INTERPRETATION AND REPORT 2015 [facility] DETERMINATION OF VENOUS PRESSURE 2015 DoD IMMUNIZATION ADMINISTRATION (INCLUDES PERCUTANEOUS, INTRADERMAL, SUBCUTANEOUS, OR INTRAMUSCULAR INJECTIONS); 1 VACCINE (SINGLE OR COMBINATION VACCINE/TOXOID) 2015 DoD No data available for this section Ambulato ry Pharmacy Social History Combined list of available smoking, tobacco, and other social history from Department of Defense and Veterans Affairs facilities. Social History Type Response Date Comment Sourc e Male 12/17/2016 Ambulatory Pha rmacy This section is an empty soc ial history section. DoD Sexual Orientation Ambula tory Pharmacy Gender identity Ambulator y Pharmacy Assessment and Plan Combined list of future [...] of Defense and Veterans Affairs (VA).VA Functional [place] Measurement (FIM) Scale: 1 = Total Assistance (Subject = 0% +), 2 = Maximal Assistance (Subject = 25% +), 3 = Moderate Assistance (Subject = 50% +), 4 = Minimal Assistance (Subject = 75% +), 5 = Supervision, 6 = Modified [place] (Device), 7 = Complete [place] (Timely, Safely). Assessment Date/Time Source Assessment Type Assessment Skill Assessment Score Assessment Details No data available for this section
== END 2024-03-09 11:27 | disposition home or self-care (01) ==
LOC: HO.HOS 10:56
PROVIDERS: Visit Provider Physician Assistant
DX: S52.121A Displaced fracture of head of right radius, initial encounter for closed fracture (principal)
CPT/HCPCS: 99203

== ENCOUNTER 2024-04-07 07:43 | Outpatient (REF) | payer OTHER, SELFPAY ==
--- NOTE | ~2024-04-07 | XR_ITS ---
CLINICAL HISTORY: M25.529 - Pain in unspecified elbow Right elbow three views Comparison: 03/02/2024 Findings: Unchanged radial head fracture. Joint effusion no longer present. No new bony abnormalities identified. Impression: Healing radial head fracture without alignment change This document has been electronically signed by: Enmanuel Riley MD on 04/07/2024 23:35:38
--- OUTSIDE RECORDS SUMMARY | 2024-04-07 07:45 | XMS_ITS | Encounter Summary ---
Author Organization [facility] Address [address] [place] [phone] Phone Care Team Providers Care Lead Loader Name Role Phone Mayuri Quintanilla MD Primary Care Provider Unavailabl e Encounter Details Date Type Department Care Team (Late st Contact Info) Description 01/30/2010 Documentation EM Family Medicine [address] [place] [address] Family Medicine, Physician [address] [place], [place] [id number] Social History Tobacco Use Types Packs/Day Years Used Date Smoking Tobacco: Never Assessed Sex and Gender Information Value Date Recorded Sex Assigned at Not on file Legal Sex Male 4:47 PM EDT Gender Identity Not on file Sexual Orientation Not on file documented as of this encounter Plan of Treatment Not on file documented as of this encounter Visit Diagnoses Not on filedocumented in this encounter Care Teams Lead Loader Relationship Specialty Start Date End Date Mayuri Quintanilla MD PCP - General 10/12/16 documented as of this encounter
--- OUTSIDE RECORDS SUMMARY | 2024-04-07 07:45 | XMS_ITS | Encounter Summary ---
Author Name [facility] Address [address] [place] [address] Care Team Providers Care Beet Flumer Name Role Phone ABHAY CUELLO Primary Care Provider Unavailabl e Selected Encounter This section includes the information on record at [place] for the Encounter. Date/Time Encounter Type Encounter Description Reason Pro vider Source Mar 18, 2024 11:41 AM Outpatient Encounter TELEPHONE PRIMARY CARE IHE Encounter Template Text not used by [place] Plan of Treatment: Future Appointments (+ 6 months) and Future Tests (+/- 45 days) The Plan of Treatment section includes future care activities for the patient from all [facility] This section includes future appointments and future orders which are active, pending or scheduled. Future Appointments This section includes appointments that were scheduled to occur 6 months from the date of the Encounter, up to a maximum of 20 appointments. The data comes from all [place] treatment facilities. Appointment Date/Time Appointment Type Appointme nt Facility Name Mar 30, 2024 02:00 PM AMBULATORY - MEDICINE [facility] Apr 07, 2024 10:00 AM AMBULATORY - MEDICINE [facility] Active, Pending, and Scheduled Orders This section includes a listing of several types of active, pending, and scheduled orders, including clinic medications orders, diagnostic test orders, procedure orders and consult orders; where the start date of the order is 45 days before the date of the Encounter or 45 days after the date of theEncounter. The data comes from all [place] treatment facilities. Test Date/Time Test Type Test Details Facility Name Mar 30, 2024 12:00 AM Laboratory - Chemistry Order CBC AND DIFF (AUTO) BLOOD (LAV-BLOOD) SP [facility] Mar 30, 2024 12:00 AM Laboratory - Chemistry Order BASIC METABOLIC PANEL (fasting) BLOOD (SST-SERUM) [facility] Mar 30, 2024 12:00 AM Laboratory - Chemistry Order LIVER FUNCTION BLOOD (SST-SERUM) [facility] Mar 30, 2024 12:00 AM Laboratory - Chemistry Order LIPID PANEL FASTING BLOOD (SST-SERUM) [facility] Mar 30, 2024 12:00 AM Laboratory - Chemistry Order TSH BLOOD (SST-SERUM) [facility] Mar 30, 2024 12:00 AM Laboratory - Chemistry Order URINALYSIS CLEAN CATCH URINE [facility] Mar 30, 2024 02:30 PM Consult Order COMMUNITY CARE-[facility]THO GENERAL Cons Ornamental Metal Erector Apprentice's Choice [facility] Social History: Smoking Status (Most current) and Tobacco Use (All prior to encounter date) This section includes the most current, and the historical, smoking and tobacco- related health factors from the [place] facility where the Encounter took place. Current Smoking Status This section includes the most current smoking, or tobacco-related health factor, from the [place] facility where the Encounter took place. Date/Time Current Smoking Status Comment Maddison ity Mar 18, 2024 11:41 AM VA-TOBACCO USE FOR GIDEON CIGARETTES [facility] Tobacco Use History This section includes a history of the smoking, or tobacco-related health factors, that were collected on or before the date of the Encounter. The data comes from the [place] facility where the Encounter took place. Date/Time Smoking Status/Tobacco Use Comment F acility Mar 18, 2024 11:41 AM VA-TOBACCO SCREEN FOLLOW-UP [facility] Mar 18, 2024 11:41 AM VA-TOBACCO USE ADVICE [facility] Mar 18, 2024 11:41 AM VA-TOBACCO USE WELDER HELPER NO [facility] Mar 18, 2024 11:41 AM VA-TOBACCO USE FOR GIDEON CIGARETTES [facility] [place] [facility] Mar 18, 2024 11:41 AM VA-TOBACCO USE MED NO [facility] [place] [facility] Encounter Notes: All associated encounter notes This section contains the clinical notes associated to the Encounter. Date/Time Encounter Note(s) Provider Source Mar 18, 2024 11:49 AM MEDICATION MGT NOTE: LOCAL TITLE: MEDICATION RECONCILIATION STANDARD TITLE: MEDICATION MGT NOTE DATE OF NOTE: MAR 18, 2024@11:49 ENTRY DATE: MAR 18, 2024@11:49:56 AUTHOR: SUNNY CLINE COSIGNER: URGENCY: STATUS: COMPLETED Radha was given an appt with: Dr. Cuello on 03/30/24@1400 ===== F: Medication reconciliation D: Radha says that he is on the following Medications: 1. Radha is on no medications at this time ======= Radha says that he has the following Medical Hx: 1. Alcohol abuse, uncomplicated 2. Cannabis use, unspecified, uncomplicated 3. Cocaine use, unspecified, uncomplicated ======= Radha says that he has the following community Providers: 1. [facility] [place] [address] Discharge Disposition: Home or Self Care 2. 09/20/2021 11:30 AM EDT Office Visit [facility] at [address] [address] Chris Kang PA ======== Radha says that he has allergies or adverse effects to the following Medications: 1. Radha has no known drug allergies /es/ SUNNY CLINE MSN Ed., BSN MEAT BONER AND SLICER NURSE Signed: 03/18/2024 13:28 Receipt Acknowledged By: 03/18/2024 13:34 /es/ Mayuri Rutledge RN, BSN Primary Care 03/18/2024 13:39 /es/ Abhay Cuello MD Staff Physician 03/18/2024 13:58 /es/ SHANE HUNTER, ALCOHOL STILL OPERATOR ALCOHOL STILL OPERATORSUNNY HERNANDEZ [facility] [place] [facility] Mar 18, 2024 11:48 AM LETTERS: LOCAL TITLE: PATIENT LETTER (B) STANDARD TITLE: LETTERS DATE OF NOTE: MAR 18, 2024@11:48 ENTRY DATE: MAR 18, 2024@11:48:57 AUTHOR: SUNNY CLINE EXP COSIGNER: URGENCY: STATUS: [place] [address] [phone] * [phone] * Date: 03/18/24 Dear Sp[place]: Allen Thank you for choosing the [facility] [place]. Please be a few minutes early to this appt- about 15 mins. We would like to update your demographic information. To schedule or if you would like more information regarding [place] health care benefits, please call toll free at [phone]), visit the [place] website at [email or web address] , or contact your local [place] Medical Center. Welcome to patient aligned care team (Pact Team 2) with (Dr. Cuello). Prior to meeting you at your new patient appointment we are requesting some of your past medical history so that we may provide you with the exceptional care you deserve. Please note that it is very helpful to have these documents prior to your appointment date as the more information we have the better we will be able to meet your needs: * Last History & Physical * Immunization records * Medication list * Diagnosis list * Most recent labs * Diagnostic screens (Colonoscopy, Abdominal Aortic Aneurysm screen, Mammograms, PAPS, etc.) We have scheduled the following appt with you to see your new PCP: Your appt is scheduled for (03/30/24@1400)- This appt will be about an hour long appt which will give you and your Provider a chance to get to know each other. You may either bring your records with you to your scheduled appointment, or drop them off ahead of your appointment or you may have them faxed to [phone] ATTN: ABDIRASHID/ALBERTO/PACT- 2-Aries If you have any questions, please do not hesitate to contact the [facility] call center at Ext [phone]. Just so that you know if you're feeling sick we have sick call hours at the [facility], and the [facility]- Sat thru Saturday 08-1530- first come first serve- walk-in basis. [facility] also has sick call hours Sat- Sat- 1100-12N, and 3P-4P- first come first serve basis- no appt needed. You can utilize our sick call system once you have seen the PCP for the first appt. Audiology Phone number- [phone]- Ext [phone] Optometry Phone Number- [phone]- Ext [phone] Mental Health Clinic- [phone] Ext- [phone] Eligibility/Enrollment- [phone]- [phone] Veterans Rep [phone] Ext [phone] [facility] [phone] [facility] Transportation [phone] Ext [phone], or,[phone] [place] Act [phone] ( Call within 72hrs of being seen in an acute care setting Sincerely. [facility] [address] [place] [address] Phone: Ext [phone] Upcoming Appointments: 03/30/24@1400- CWM/NO/PACT- 2-Aries Cline MSN Ed., BSN, RN [facility] [address] [facility] [address] [place] [address] [place] [address] - Ext [phone] [place] [facility] [address] [place] [id number] [place] [address] # [phone] [place] [address] SUNNY CLINE [facility] [place] [facility] Mar 18, 2024 11:47 AM LETTERS: LOCAL TITLE: PATIENT LETTER (B) STANDARD TITLE: LETTERS DATE OF NOTE: MAR 18, 2024@11:47 ENTRY DATE: MAR 18, 2024@11:48 AUTHOR: SUNNY CLINE EXP COSIGNER: URGENCY: STATUS: COMPLETED [facility] [address] [place] [phone] * [phone] * Date: 03/18/24 Dear : Allen Thank you for choosing the [facility]. The Whole Health Program aims to support you in pursuing what matters most to you, and includes services that support your values and overall wellness. This includes the following offerings: * Yoga * Acupuncture * Ottertail Acupuncture for Acute Pain (offered weekly; drop-in or scheduled) * Individual health coaching * Lot Porter * Biofeedback for Hypertension and Anxiety * Guided Imagery Group * Meditation Group * Cancer Support Group * Stress Management Group ( Stress Less ) The following require no referral from a provider, and can be initiated by you at any time: * Yoga * Meditation * Ottertail Acupuncture * Cancer Support Group * Individual Health Coaching * Stress Management Group ( Stress Less ) If interested in any of the above offerings, please reach out to the Whole Health Team at ext. [phone]. To schedule consult-required services, or if you would like more information regarding [place] health care benefits, please call toll free at [phone]), visit the [place] website at [email or web address] , or contact your local [place] Medical Center. If you have any questions, please do not hesitate to contact the [facility] call center. Sincerely. Dr. Charlene Stroud [facility] Health and Integrated Mirror Machine Feeder [facility] Direct SUNNY CLINE [facility] [place] [facility] Mar 18, 2024 11:41 AM PREVENTIVE MEDICINE NURSING NOTE: LOCAL TITLE: CLINICAL REMINDERS/NURSING STANDARD TITLE: PREVENTIVE MEDICINE NURSING NOTE DATE OF NOTE: MAR 18, 2024@11:41 ENTRY DATE: MAR 18, 2024@11:41:09 AUTHOR: SUNNY CLINE EXP COSIGNER: URGENCY: STATUS: COMPLETED Advance Directive Screen AD: Patient does not have an Advance Directive completed and is requesting more information. The patient received education about Advance Directives and written notification of his/her rights. Vet was sent an advanced directive and was asked to fill out and bring in to the PCP appt. Tdap Immunization: Td/Tdap given previously - written records available The patient has previously received the Tetanus, Diphtheria, Pertussis vaccine (Tdap). Documented: TDAP Historical Date Administered: Sep 16, 2014 Hazardous Substances Engineer: SANOFI PASTEUR Lot: [id number] Exp Date: Unknown Outside Location: Outside Healthcare Provider Information Source: FROM OTHER REGISTRY Comment: tetanus toxoid, reduced diphtheria toxoid, and acellular pertussis vaccine, adsorbed Documented: MENINGOCOCCAL MCV4P Historical Date Administered: Sep 16, 2014 Series: Series 1 Lot: [id number] Exp Date: Unknown Outside Location: Outside Healthcare Provider Information Source: FROM OTHER REGISTRY Comment: meningococcal polysaccharide (groups A, C, Y and W-135) diphtheria toxoid conjugate vaccine (MCV4P) Documented: POLIO, UNSPECIFIED FORMULATION Historical Date Administered: Sep 16, 2014 Series: Series 1 Hazardous Substances Engineer: SANOFI PASTEUR Lot: [id number] Exp Date: Unknown Outside Location: Outside Healthcare Provider Information Source: FROM OTHER REGISTRY Comment: poliovirus vaccine, inactivated Documented: ADENOVIRUS TYPES 4 AND 7 Historical Date Administered: Sep 20, 2014 Series: Series 1 Hazardous Substances Engineer: Eigenta Lot: [id number] Exp Date: Unknown Outside Location: Outside Healthcare Provider Information Source: FROM OTHER REGISTRY Comment: Adenovirus, type 4 and type 7, live, oral Documented: HEP B, ADOLESCENT OR PEDIATRIC Historical Date Administered: Sep 20, 2014 Series: Series 1 Lot: [id number] Exp Date: Unknown Outside Location: Outside Healthcare Provider Information Source: FROM OTHER REGISTRY Comment: hepatitis B vaccine, pediatric or pediatric/adolescent dosage Documented: HEP B, ADULT Historical Date Administered: Nov 23, 2014 Series: Series 2 Lot: [id number] Exp Date: Unknown Outside Location: Outside Healthcare Provider Information Source: FROM OTHER REGISTRY Comment: hepatitis B vaccine, pediatric or pediatric/adolescent dosage Documented: HEP B, ADULT Historical Date Administered: May 24, 2015 Series: Series 3 Lot: [id number] Exp Date: Unknown Outside Location: Outside Healthcare Provider Information Source: FROM OTHER REGISTRY Comment: hepatitis B vaccine, adult dosage Documented: TYPHOID, VICPS Historical Date Administered: Feb 08, 2017 Series: Series 1 Hazardous Substances Engineer: SANOFI PASTEUR Lot: [id number] Exp Date: Unknown Outside Location: Outside Healthcare Provider Information Source: FROM OTHER REGISTRY Comment: yphoid Vi capsular polysaccharide vaccine Documented: COVID-19 (Nosopharm), VECTOR-NR, RS-AD26, PF, 0.5 ML Historical Date Administered: Oct 28, 2020 Series: Series 1 Hazardous Substances Engineer: CLOTILDE Outside Location: Outside Healthcare Provider Dosage: 0.5mL Information Source: FROM OTHER REGISTRY Comment: COVID-19 (Nosopharm), VECTOR-NR, RS-AD26, PF, 0.5 ML Depression Screening: Perform PHQ-2 A PHQ-2 screen was performed. The score was 0 which is a negative screen for depression. Over the past two weeks, how often have you been bothered by the following problems? 1. Little interest or pleasure in doing things Not at all 2. Feeling down, depressed, or hopeless Not at all Suicide Screen: C-SSRS Screening [place] Suicide Severity Rating Scale (C-SSRS) screener 1. Over the past month, have you wished you were or wished you could go to sleep and not wake up? No 2. Over the past month, have you had any actual thoughts of killing yourself? No 3. Over the past month, have you been thinking about how you might do this? Response not required due to responses to other questions. 4. Over the past month, have you had these thoughts and had some intention of acting on them? Response not required due to responses to other questions. 5. Over the past month, have you started to work out or worked out the details of how to kill yourself? Response not required due to responses to other questions. 6. If yes, at any time in the past month did you intend to carry out this plan? Response not required due to responses to other questions. 7. In your lifetime, have you ever done anything, started to do anything, or prepared to do anything to end your life (for example, collected pills, obtained a gun, gave away valuables, went to the roof but didn't jump)? No 8. If YES, was this within the past 3 months? Response not required due to responses to other questions. Homelessness/Food Insecurity Screen: In the past 2 months, have you been living in stable housing that you own, rent, or stay in as part of a household? Yes - Living in stable housing. Are you worried or concerned that in the next 2 months you may NOT have stable housing that you own, rent, or stay in as part of a household? No - Not worried about housing near future The [facility] reports the following: Within the past 12 months, you worried whether your food would run out before you got money to buy more. Never true Within the past 12 months, the food you bought just didn't last and you didn't have money to get more. Never true MST Screening: Patient denies experiencing sexual trauma (MST). Preferred Language: What is your, or your caregiver's preferred language for healthcare? Preferred Language: Macedonian PTSD Screening: PC-PTSD-5 A PTSD screening test (PC-PTSD-5) was negative (score=0). IN THE PAST MONTH, have you ever had any experience that was so frightening, horrible or traumatic. For example: A serious accident or fire a physical or sexual assault or abuse An earthquake or flood A war Seeing someone be killed or seriously injured Having a loved one through homicide or suicide 1. Have you ever experienced this kind of event? NO 2. Had nightmares about the event(s) or thought about the event(s) when you did not want to? Response not required due to responses to other questions. 3. Tried hard not to think about the event(s) or went out of your way to avoid situations that reminded you of the event(s)? Response not required due to responses to other questions. 4. Been constantly on guard, watchful, or easily startled? Response not required due to responses to other questions. 5. [place] numb or detached from people, activities, or your surroundings? Response not required due to responses to other questions. 6. [place] guilty or unable to stop blaming yourself or others for the event(s) or any problems the event(s) may have caused? Response not required due to responses to other questions. TBI Screening: The was not deployed in support of post-11/12 operations. Tobacco Use Screening: The patient is a former cigarette smoker. The patient has never used other types of tobacco. Patient was advised to stop smoking and/or using other tobacco products. Advised patient that a combination of behavioral counseling and FDA-approved cessation medications is the most effective way to ensure their success in stopping to smoke and/or using other tobacco products. The patient was not interested in additional information about behavioral counseling and other support strategies discussed. Informed patient that medications can help with cravings and withdrawal symptoms, and they greatly increase the chances of successfully stopping your tobacco use. The patient was not interested in a prescription for tobacco cessation medications. Influenza Immunization: Deferral / Refusal The patient declines to receive the recommended dose of seasonal influenza vaccine. Immunization: INFLUENZA, UNSPECIFIED FORMULATION Refusal Reason: PATIENT DECISION Patient refuses all immunization(s) in the FLU group Comment: Refuses Date Documented: 03/18/24 12:45 Alcohol Use Screen (AUDIT-C): Alcohol Screen: SCREEN FOR ALCOHOL (AUDIT-C) An alcohol screening test (AUDIT-C) was negative (score=1). 1. How often did you have a drink containing alcohol in the past year? Consider a drink to be a 12 ounce can or bottle of regular beer, 8 ounces of malt liquor, a 5 ounce glass of table wine, or a 1.5 ounce shot of liquor (like scotch, gin, or vodka). Monthly or less 2. How many drinks containing alcohol did you have on a typical day when you were drinking in the past year? One or two drinks 3. How often did you have six or more drinks on one occasion in the past year? Never COVID-19 Immunization: Refused Moderna Monovalent COVID-19 vaccine Immunization: COVID-19 (MODERNA), MRNA, LNP-S, PF, 50 MCG/0.5 ML (AGES 12+ YEARS) Refusal Reason: PATIENT DECISION Patient refuses all immunization(s) in the COVID-19 group Comment: Refuses all Covid Vaccines Date Documented: 03/18/24 12:47 Td / Tdap Immunization: Prior Td vaccination The patient has previously received the Tetanus, Diphtheria, Pertussis vaccine (Tdap). Documented: TDAP Historical Date Administered: Sep 20, 2021 Outside Location: Outside Healthcare Provider Information Source: FROM OTHER REGISTRY /es/ SUNNY CLINE MSN Ed., BSN MEAT BONER AND SLICER NURSE Signed: 03/18/2024 13:24 SUNNY CLINE [facility]
--- OUTSIDE RECORDS SUMMARY | 2024-04-07 07:45 | XMS_ITS ---
Author Name [facility] Organization [facility] [place] Address [address] [place] [address] Care Team Providers Care Legal Consultant Name Role Phone BOZENA CUELLO Primary Care Provider Unavailabl e Selected Encounter This section includes the information on record at [place] for the Encounter. Date/Time Encounter Type Encounter Description Reason Pro vider Source Mar 11, 2024 10:06 AM Outpatient Encounter ADMIN PAT ACTIVTIES (MASNONCT) I[facility] Encounter Template Text not used by [place] Plan of Treatment: Future Appointments (+ 6 months) and Future Tests (+/- 45 days) The Plan of Treatment section includes future care activities for the patient from all [place] treatmentfacilities. This section includes future appointments and future orders which are active, pending or scheduled. Future Appointments This section includes appointments that were scheduled to occur 6 months from the date of the Encounter, up to a maximum of 20 appointments. The data comes from all [place] treatment facilities. Appointment Date/Time Appointment Type Appointme nt Facility Name Mar 30, 2024 02:00 PM AMBULATORY - MEDICINE [facility] Apr 07, 2024 10:00 AM [facility] Active, Pending, and Scheduled Orders This section includes a listing of several types of active, pending, and scheduled orders, including clinic medications orders, diagnostic test orders, procedure orders and consult orders; where the start date of the order is 45 days before the date of the Encounter or 45 days after the date of theEncounter. The data comes from all [place] treatment facilities. Test Date/Time Test Type Test Details Facility Name Mar 30, 2024 12:00 AM Laboratory - Chemistry Order CBC AND DIFF (AUTO) BLOOD (LAV-BLOOD) [facility] [place] [facility] Mar 30, 2024 12:00 AM Laboratory - Chemistry Order BASIC METABOLIC PANEL (fasting) BLOOD (SST-SERUM) [facility] [place] [facility] Mar 30, 2024 12:00 AM Laboratory - Chemistry Order LIVER FUNCTION BLOOD (SST-SERUM) [facility] [place] [facility] Mar 30, 2024 12:00 AM Laboratory - Chemistry Order LIPID PANEL FASTING BLOOD (SST-SERUM) [facility] [place] [facility] Mar 30, 2024 12:00 AM Laboratory - Chemistry Order TSH BLOOD (SST-SERUM) [facility] [place] [facility] Mar 30, 2024 12:00 AM Laboratory - Chemistry Order URINALYSIS CLEAN CATCH URINE [facility] [place] [facility] Mar 30, 2024 02:30 PM Consult Order [facility]ARE[facility] GENER[facility] Cons Director Television [facility] [place] [facility] Encounter Notes: All associated encounter notes This section contains the clinical notes associated to the Encounter. Date/Time Encounter Note(s) Provider Source Mar 11, 2024 10:55 PM ADDENDUM: LOCAL TITLE: Addendum STANDARD TITLE: ADDENDUM DATE OF NOTE: MAR 11, 2024@22:55:39 ENTRY DATE: MAR 11, 2024@22:55:39 AUTHOR: RUBEN FREY EXP COSIGNER: URGENCY: STATUS: COMPLETED Please call to [facility] in [place] /delroy/ RUBEN FREY TIRE REPAIR MECHANIC [facility] Signed: 03/11/2024 22:56 Receipt Acknowledged By: 03/18/2024 13:29 /delroy/ SUNNY CLINE MSN Ed., BSN CREDIT COLLECTION SPECIALIST NURSE === --- Original Document --- 03/11/24 CCC: SCHEDULING ADMINISTRATION: Patient Demographics Patient Name: ALLEN REY Patient Primary Address: [address] [place] [address] Patient : 1995 Patient Age: 28 Caller/Recipient Relation to Patient: Self Caller Name: ALLEN REY Administrative Administrative Note Reason: Other Administrative Note Comments: Vet requesting a call to schedule first appointment with new Pact. Please call vet to schedule. IMPORTANT: This note was created by [facility] Clinical Contact Center staff. Please do not alert the staff member by adding them as a signer for future communications. Alerts are not monitored by this user. valentina/ LACY MONTOYA [facility] Signed: 03/11/2024 10:06 Receipt Acknowledged By: 03/12/2024 15:45 /es/ LAXMI ORNELAS MSA TIRE REPAIR MECHANIC [facility] 03/11/2024 22:55 /es/ RUBEN FREY TIRE REPAIR MECHANIC [facility] 03/12/2024 14:26 /es/ CANDELARIA ESCOBEDO TIRE REPAIR MECHANIC [place] POLISHER HAND RUBEN FREY [place] [facility] [place] [facility] Mar 11, 2024 10:06 AM ADMINISTRATIVE NOTE: LOCAL TITLE: [facility]: SCHEDULING ADMINISTRATION STANDARD TITLE: ADMINISTRATIVE NOTE DATE OF NOTE: MAR 11, 2024@10:06:38 ENTRY DATE: MAR 11, 2024@10:06:38 AUTHOR: LACY KINGSLEY EXP COSIGNER: URGENCY: STATUS: COMPLETED CCC: SCHEDULING ADMINISTRATION Has ADDENDA Patient Demographics Patient Name: ALLEN REY Patient Primary Address: [address] [place] [address] Patient : 1995 Patient Age: 28 Caller/Recipient Relation to Patient: Self Caller Name: ALLEN REY Administrative Administrative Note Reason: Other Administrative Note Comments: Vet requesting a call to schedule first appointment with new Pact. Please call vet to schedule. IMPORTANT: This note was created by [facility] Clinical Contact Center staff. Please do not alert the staff member by adding them as a signer for future communications. Alerts are not monitored by this user. /delroy/ LACY MONTOYA 1 [facility] Signed: 03/11/2024 10:06 Receipt Acknowledged By: 03/12/2024 15:45 /es/ LAXMI ORNELAS MSA TIRE REPAIR MECHANIC, [facility] 03/11/2024 22:55 /es/ RUBEN FREY TIRE REPAIR MECHANIC [facility] 03/12/2024 14:26 /es/ CANDELARIA ESCOBEDO TIRE REPAIR MECHANIC [employer] [facility] 03/11/2024 ADDENDUM STATUS: COMPLETED Please call to [facility] in [place] /delroy/ RUBEN FREY TIRE REPAIR MECHANIC [facility] Signed: 03/11/2024 22:56 Receipt Acknowledged By: * AWAITING SIGNATURE * SUNNY CLINE [place] [facility]
--- OUTSIDE RECORDS SUMMARY | 2024-04-07 07:45 | XMS_ITS ---
Author Name [facility] [place] [facility] [place] Address [address] [place] [address] Care Team Providers Care Polarity Tester Name Role Phone BOZENA CUELLO Primary Care Provider Unavailabl e Selected Encounter This section includes the information on record at [place] for the Encounter. Date/Time Encounter Type Encounter Description Reason Pro vider Source Mar 09, 2024 01:46 PM Outpatient Encounter ADMIN PAT ACTIVTIES (MASNONCT) [facility] Encounter Template Text not used by [place] Plan of Treatment: Future Appointments (+ 6 months) and Future Tests (+/- 45 days) The Plan of Treatment section includes future care activities for the patient from all [place] treatmentfacilities. This section includes future appointments and future orders which are active, pending or scheduled. Future Appointments This section includes appointments that were scheduled to occur 6 months from the date of the Encounter, up to a maximum of 20 appointments. The data comes from all [place] treatment facilities. Appointment Date/Time Appointment Type Appointme nt Facility Name Mar 30, 2024 02:00 PM AMBULATORY - MEDICINE [facility] Apr 07, 2024 10:00 AM [facility] Active, Pending, and Scheduled Orders This section includes a listing of several types of active, pending, and scheduled orders, including clinic medications orders, diagnostic test orders, procedure orders and consult orders; where the start date of the order is 45 days before the date of the Encounter or 45 days after the date of theEncounter. The data comes from all [place] treatment facilities. Test Date/Time Test Type Test Details Facility Name Mar 30, 2024 12:00 AM Laboratory - Chemistry Order CBC AND DIFF (AUTO) BLOOD (LAV-BLOOD) [facility] [place] [facility] Mar 30, 2024 12:00 AM Laboratory - Chemistry Order BASIC METABOLIC PANEL (fasting) BLOOD (SST-SERUM) [facility] [place] [facility] Mar 30, 2024 12:00 AM Laboratory - Chemistry Order LIVER FUNCTION BLOOD (SST-SERUM) [facility] [place] [facility] Mar 30, 2024 12:00 AM Laboratory - Chemistry Order LIPID PANEL FASTING BLOOD (SST-SERUM) [facility] [place] [facility] Mar 30, 2024 12:00 AM Laboratory - Chemistry Order TSH BLOOD (SST-SERUM) [facility] [place] [facility] Mar 30, 2024 12:00 AM Laboratory - Chemistry Order URINALYSIS CLEAN CATCH URINE [facility] [place] [facility] Mar 30, 2024 02:30 PM Consult Order COMMUNITY CARE-[facility]O GENERAL Cons Instructor Extension [facility] [place] [facility] Encounter Notes: All associated encounter notes This section contains the clinical notes associated to the Encounter. Date/Time Encounter Note(s) Provider Source Mar 11, 2024 10:54 PM ADDENDUM: LOCAL TITLE: Addendum STANDARD TITLE: ADDENDUM DATE OF NOTE: MAR 11, 2024@22:54:10 ENTRY DATE: MAR 11, 2024@22:54:10 AUTHOR: RUBEN FREY EXP COSIGNER: URGENCY: STATUS: COMPLETED Please call to establish care in [place] /delroy/ RUBEN FREY HAND SPRING FORMER [facility] Signed: 03/11/2024 22:54 Receipt Acknowledged By: 03/18/2024 13:29 /delroy/ SUNNY CLINE MSN Ed., BSN POLYGRAPH TECHNICIAN NURSE === --- Original Document --- 03/09/24 CCC: SCHEDULING ADMINISTRATION: Patient Demographics Patient Name: ALLEN REY Patient Primary Address: [address] [place] [address] Patient : 1995 Patient Age: 28 Caller/Recipient Relation to Patient: Self Caller Name: ALLEN REY Scheduling Cannot Complete Scheduling Action Reason: Consult/Referral Does Not Exist Requested Service(s): Primary Care Scheduling Note Reason: Cannot Complete Appointment Request;Patient is Requesting Consult/ Referral Administrative Administrative Note Comments: Braulio is requesting a new patient appointment in [place]. states he recently fractured his right arm and was seen at [facility] on 03/02/24. will be needing ortho referral. can be reached at [phone] IMPORTANT: This note was created by [facility] Clinical Contact Center staff. Please do not alert the staff member by adding them as a signer for future communications. Alerts are not monitored by this user. /delroy/ RADHA MONTOYA [facility] Signed: 03/09/2024 13:46 Receipt Acknowledged By: 03/09/2024 14:22 /es/ LAXMI ORNELAS MSA HAND SPRING FORMER, [facility] 03/11/2024 22:52 /es/ RUBEN FREY HAND SPRING [facility] 03/10/2024 10:50 /es/ CANDELARIA ESCOBEDO HAND SPRING FORMER CENTERLESS GRINDER TENDER RUBEN FREY [place] [facility] Mar 09, 2024 01:46 PM ADMINISTRATIVE NOTE: LOCAL TITLE: CCC: SCHEDULING ADMINISTRATION STANDARD TITLE: ADMINISTRATIVE NOTE DATE OF NOTE: MAR 09, 2024@13:46:45 ENTRY DATE: MAR 09, 2024@13:46:45 AUTHOR: RADHA MARIA COSIGNER: URGENCY: STATUS: COMPLETED CCC: SCHEDULING ADMINISTRATION Has ADDENDA Patient Demographics Patient Name: ALLEN REY Patient Primary Address: [address] [place] [address] Patient : 1995 Patient Age: 28 Caller/Recipient Relation to Patient: Self Caller Name: ALLEN REY Scheduling Cannot Complete Scheduling Action Reason: Consult/Referral Does Not Exist Requested Service(s): Primary Care Scheduling Note Reason: Cannot Complete Appointment Request;Patient is Requesting Consult/ Referral Administrative Administrative Note Comments: Crete is requesting a new patient appointment in [place]. states he recently fractured his right arm and was seen at [facility] on 03/02/24. will be needing ortho referral. can be reached at [phone] IMPORTANT: This note was created by [facility] Clinical Contact Center staff. Please do not alert the staff member by adding them as a signer for future communications. Alerts are not monitored by this user. /delroy/ RADHA MONTOYA [facility] PR[facility] Signed: 03/09/2024 13:46 Receipt Acknowledged By: 03/09/2024 14:22 /es/ LAXMI ORNELAS MSA HAND SPRING FORMER, [facility] 03/11/2024 22:52 /es/ RUBEN FREY HAND SPRING FORMER [facility] 03/10/2024 10:50 /es/ CANDELARIA ESCOBEDO HAND SPRING FORMER CENTERLESS GRINDER TENDER 03/11/2024 ADDENDUM STATUS: COMPLETED Please call to establish care in [place] /delroy/ RUBEN FREY HAND SPRING FORMER [facility] Signed: 03/11/2024 22:54 Receipt Acknowledged By: * AWAITING SIGNATURE * SUNNY CLINE MARCY L [place] [facility]
--- OUTSIDE RECORDS SUMMARY | 2024-04-07 07:45 | XMS_ITS | Encounter Summary ---
Author Organization [facility] Address [address] [place] [phone] Phone Care Team Providers Care Telesales Specialist Name Role Phone Mayuri Quintanilla MD Primary Care Provider Unavailabl e Encounter Details Date Type Department Care Team (Late st Contact Info) Description 12/20/2011 Documentation [facility] Family Medicine [address] [place] [address] Family Medicine, Physician [address] [place], [place] [phone] Social History Tobacco Use Types Packs/Day Years [...] on filedocumented in this encounter Care Teams Telesales Specialist Relationship Specialty Start Date End Date Mayuri Quintanilla MD PCP - General 10/12/16 documented as of this encounter
--- OUTSIDE RECORDS SUMMARY | 2024-04-07 07:45 | XMS_ITS | Encounter Summary ---
Author Organization [facility] Address [address] [place] [address] Phone Care Team Providers Care Air Brake Man Name Role Phone Mayuri Quintanilla MD Primary Care Provider Unavailabl e Encounter Details Date Type Department Care Team (Late st Contact Info) Description 07/22/2009 Documentation [facility] Family Medicine [address] [place] [address] Family Medicine, Physician [address] [place], [place] [phone] Social History Tobacco Use Types Packs/Day Years [...] on filedocumented in this encounter Care Teams Air Brake Man Relationship Specialty Start Date End Date Mayuri Quintanilla MD PCP - General 10/12/16 documented as of this encounter
--- OUTSIDE RECORDS SUMMARY | 2024-04-07 07:45 | XMS_ITS | Encounter Summary ---
Author Organization [facility] Address [address] [place] [phone] Phone Care Team Providers Care Contact Centre Supervisor Name Role Phone Mayuri Quintanilla MD Primary Care Provider Unavailabl e Encounter Details Date Type Department Care Team (Late st Contact Info) Description 10/18/2016 Conversion Encounter [facility] - [address] [address] Social History Tobacco Use Types Packs/Day Years Used Date Smoking Tobacco: Never Comments:Never smoker Sex and Gender Information Value Date Recorded Sex Assigned at Not on file Legal Sex Male 4:47 PM EDT Gender Identity Not on file Sexual Orientation Not on file documented as of this encounter Plan of Treatment Not on file documented as of this encounter Visit Diagnoses Not on filedocumented in this encounter Care Teams Contact Centre Supervisor Relationship Specialty Start Date End Date Mayuri Quintanilla MD PCP - General 10/12/16 documented as of this encounter
--- OUTSIDE RECORDS SUMMARY | 2024-04-07 07:45 | XMS_ITS | Encounter Summary ---
Author Name [facility] [place] Organization [facility] [place] [place] [facility] [place] Address [address] [place] [address] Care Team Providers Care Cutting Inspector Name Role Phone ABHAY CHRIS Primary Care Provider Unavailabl e Selected Encounter This section includes the information on record at NH for the Encounter. Date/Time Encounter Type Encounter Description Reason Provider Source Mar 30, 2024 02:00 PM OFFICE O/P EST MOD 30 MIN PRIMARY CARE/MEDICINE ICD-10-CM M25.521 Pain in right elbow ABHAY CHRIS [facility] Encounter Template Text not used by NH Assessments - Encounter Diagnoses This section includes the primary and secondary diagnoses documented for the Encounter. Date/Time Primary/Secondary Diagnosis Diagnosis Name Provider Source Mar 30, 2024 02:27 PM PRIMARY Pain in right elbow ABHAY CHRIS [facility] Plan of Treatment: Future Appointments (+ 6 months) and Future Tests (+/- 45 days) The Plan of Treatment section includes future care activities for the patient from all [place] treatmentfacilities. This section includes future appointments and future orders which are active, pending or scheduled. Future Appointments This section includes appointments that were scheduled to occur 6 months from the date of the Encounter, up to a maximum of 20 appointments. The data comes from all [place] treatment facilities. Appointment Date/Time Appointment Type Appointme nt Facility Name Apr 07, 2024 10:00 AM AMBULATORY - MEDICINE [facility] Active, Pending, and Scheduled Orders This section includes a listing of several types of active, pending, and scheduled orders, including clinic medications orders, diagnostic test orders, procedure orders and consult orders; where the start date of the order is 45 days before the date of the Encounter or 45 days after the date of theEncounter. The data comes from all [place] treatment facilities. Test Date/Time Test Type Test Details Facility Name Mar 30, 2024 12:00 AM Laboratory - Chemistry Order CBC AND DIFF (AUTO) [facility] Mar 30, 2024 12:00 AM Laboratory - Chemistry Order BASIC METABOLIC PANEL (fasting) BLOOD (SST-SERUM) [facility] Mar 30, 2024 12:00 AM Laboratory - Chemistry Order LIVER FUNCTION BLOOD ([facility]ST[facility]SERUM[facility] Mar 30, 2024 12:00 AM Laboratory - Chemistry Order LIPID PANEL FASTING BLOOD (SST-SERUM) [facility] Mar 30, 2024 12:00 AM Laboratory - Chemistry Order TSH BLOOD (SST[facility]SERUM) [facility] Mar 30, 2024 12:00 AM Laboratory - Chemistry Order URINALYSIS CLEAN CATCH URINE [facility] Mar 30, 2024 02:30 PM Consult Order COMMUNITY CARE-ORTHO GENERAL Cons Global Human Resources Director's Choice [facility] Vital Signs: All taken on the encounter date This section contains inpatient and outpatient Vital Signs collected on the date of the Encounter. Date/Time Temperature Pulse Blood Pressure Respiratory Rate SP02 Pain Height Weight Body Mass Index Source Mar 30, 2024 01:46 PM 97.4 77 128/82 16 97 0 74 166.3 21 [facility] Social History: Smoking Status (Most current) and Tobacco Use (All prior to encounter date) This section includes the most current, and the historical, smoking and tobacco- related health factors from the NH facility where the Encounter took place. Current Smoking Status This section includes the most current smoking, or tobacco-related health factor, from the NH facility where the Encounter took place. Date/Time Current Smoking Status Dewayne tejada Mar 18, 2024 11:41 AM [facility]TO[facility]ACCO [facility] Tobacco Use History This section includes a history of the smoking, or tobacco-related health factors, that were collected on or before the date of the Encounter. The data comes from the NH facility where the Encounter took place. Date/Time Smoking Status/Tobacco Use Comment F acility Mar 18, 2024 11:41 AM VA-TOBACCO SCREEN FOLLOW-UP NH [facility] Mar 18, 2024 11:41 AM VA-TOBACCO USE ADVICE [facility] [place] [facility] Mar 18, 2024 11:41 AM VA-TOBACCO USE PRINCIPAL TECHNOLOGIST NO [facility] Mar 18, 2024 11:41 AM VA-TOBACCO USE [facility] GIDEON CIGARETTES [facility] Mar 18, 2024 11:41 AM VA-TOBACCO USE MED NO [facility] Encounter Notes: All associated encounter notes This section contains the clinical notes associated to the Encounter. Date/Time Encounter Note(s) Provider Source Mar 30, 2024 02:01 PM PHYSICIAN NOTE: LOCAL TITLE: MD NOTE STANDARD TITLE: PHYSICIAN NOTE DATE OF NOTE: MAR 30, 2024@14:01 ENTRY DATE: MAR 30, 2024@14:01:46 AUTHOR: ABHAY CHRIS EXP COSIGNER: URGENCY: STATUS: COMPLETED Patient Name: ALLEN REY VITALS: Patient temperature: 97.4 F [36.3 C] (03/30/2024 13:46) Blood pressure: 128/82 (03/30/2024 13:46) Patient height: 74 in [188.0 cm] (03/30/2024 13:46) Patient weight: 166.3 lb [75.43 kg] (03/30/2024 13:46) Patient BMI: BMI: 21.4 Patient pulse: 77 (03/30/2024 13:46) Patient respiration: 16 (03/30/2024 13:46) Patient Pulse Oximetry: 97% (03/30/2024 13:46) Pain Ratin (03/30/2024 13:46) Active [facility] Medications: Active Outpatient Medications (including Supplies): No Medications Found Remote Medications: No Active Remote Medications for this patient 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 He is no longer wearing a cast or splint. He feels well today with no complaints. No numbness or weakness. 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 [employer] review of systems No chest pain or dyspnea No abdominal pain No trouble urinating No fever or chills No cough Physical examination: Well developed well nourished in no apparent distress Vitals as above Heart: rrr, no m/r/g Lungs: clear to ausculatation Abdomen: soft, +bs, nontender, nondistended, no masses or guarding Extremities: no edema, no cyanosis or clubbing Neurologic: alert and oriented x 3, normal gait, normal senory and motor, normal reflexes, EOMI, PERRLA, conjunctiva and sclera normal Psychiatric: answers questions appropriately, normal/coherent speech HEENT: mucious membranes moist Ears and pharynx: no erythema, tympanic membranes normal Neck: supple Urogenital: normal external male, no masses Skin: warm, dry, no lesions Assessment and plan: 1. Fracture right elbow: No acute neurologic deficit Plan: Orthopedics follow-up Fasting labs this month Follow-up 1 year Personal email [email or web address] Medication Reconciliation: Patient reports taking no medications. Meds were not administered, prescribed, modified, nor influenced the care given at this encounter. 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 The /caregiver was informed that we will continue to ask this screening question every 5 years. They can contact their provider/healthcare team if they have concerns about exposures and would like to be screened sooner. Printed information was offered and provided if desired. /delroy/ Abhay Chris MD Staff Physician Signed: 03/30/2024 14:27 ABHAY CHRIS [facility] Mar 30, 2024 01:53 PM PREVENTIVE MEDICIN E NURSING NOTE: LOCAL TITLE: CLINICAL REMINDERS/NURSING STANDARD TITLE: PREVENTIVE MEDICINE NURSING NOTE DATE OF NOTE: MAR 30, 2024@13:53 ENTRY DATE: MAR 30, 2024@13:54 AUTHOR: SHANE HUNTER EXP COSIGNER: URGENCY: STATUS: COMPLETED Sexual Orientation: The patient thinks of their sexual orientation as: Straight or Heterosexual (Optional) Whole Health Documentation: What matters the most to you? What motivates you to be healthy? (MAP) Response: to live long Screen for Embedded Fragments: SCREEN FOR EMBEDDED FRAGMENTS The patient reports no embedded fragments. Influenza Immunization: Deferral / Refusal The patient declines to receive the recommended dose of seasonal influenza vaccine. Immunization: INFLUENZA, UNSPECIFIED FORMULATION Refusal Reason: PATIENT DECISION Patient refuses all immunization(s) in the FLU group Date Documented: 03/30/24 13:57 /delroy/ SHANE HUNTER LPN LPN Signed: 03/30/2024 13:58 SHANE HUNTER [facility]
--- OUTSIDE RECORDS SUMMARY | 2024-04-07 07:46 | XMS_ITS | Encounter Summary ---
Author Name [facility] [place] [place] Organization [place] Address [address] [place] [address] Care Team Providers Care No Experience Name Role Phone BOZENA CUELLO Primary Care Provider Unavailabl e Selected Encounter This section includes the information on record at [place] for the Encounter. Date/Time Encounter Type Encounter Description Reason Pro vider Source Mar 11, 2024 10:27 AM Outpatient Encounter TELEPHONE TRIAGE IHE Encounter Template Text not used by [place] Plan of Treatment: Future Appointments (+ 6 months) and Future Tests (+/- 45 days) The Plan of Treatment section includes future care activities for the patient from all [place] [facility]. This section includes future appointments and future orders which are active, pending or scheduled. Future Appointments This section includes appointments that were scheduled to occur 6 months from the date of the Encounter, up to a maximum of 20 appointments. The data comes from all [place] treatment facilities. Appointment Date/Time Appointment Type Appointme nt Facility Name Mar 30, 2024 02:00 PM AMBULATORY - MEDICINE [facility] Apr 07, 2024 10:00 AM AMBULATORY - MEDICINE [facility] Active, Pending, and Scheduled Orders This section includes a listing of several types of active, pending, and scheduled orders, including clinic medications orders, diagnostic test orders, procedure orders and consult orders; where the start date of the order is 45 days before the date of the Encounter or 45 days after the date of theEncounter. The data comes from all [place] treatment facilities. Test Date/Time Test Type Test Details Facility Name Mar 30, 2024 12:00 AM Laboratory - Chemistry Order CBC AND DIFF (AUTO) [facility]LOOD [facility] Mar 30, 2024 12:00 AM Laboratory - Chemistry Order BASIC METABOLIC PANEL (fasting) BLOOD (SST-SERUM) [facility] Mar 30, 2024 12:00 AM Laboratory - Chemistry Order LIVER FUNCTION BLOOD (SST-SERUM) [facility] Mar 30, 2024 12:00 AM Laboratory - Chemistry Order LIPID PANEL FASTING BLOOD (SST-SERUM) [facility] Mar 30, 2024 12:00 AM Laboratory - Chemistry Order TSH BLOOD (SST-SERUM) [facility] Mar 30, 2024 12:00 AM Laboratory - Chemistry Order URINALYSIS CLEAN CATCH URINE [facility] Mar 30, 2024 02:30 PM Consult Order COMMUNITY CARE-ORTHO GENERAL Cons Industrial Designer's Choice [facility] Encounter Notes: All associated encounter notes This section contains the clinical notes associated to the Encounter. Date/Time Encounter Note(s) Provider Source Mar 11, 2024 10:27 AM RN PROGRESS NOTE: [facility] TITLE: [facility]: CLINICAL TRIAGE STANDARD TITLE: RN PROGRESS NOTE DATE OF NOTE: MAR 11, 2024@10:27:45 ENTRY DATE: MAR 11, 2024@10:27:45 AUTHOR: BETY ASH EXP COSIGNER: URGENCY: STATUS: COMPLETED Patient Demographics Patient Name: ALLEN REY Patient Primary Address: [address] [place] [address] Patient : 1995 Patient Age: 28 Call Back Number: [phone] Caller/Recipient Relation to Patient: Self Caller Name: ALLEN REY Emergency Contact: CALI ANN Triage Summary Conducted triage/discussed symptoms Utilized the Triage Tool: Yes Chief Complaint: Penile Discharge System WHEN: Within 24 Hours Nurse's Recommendation / WHEN: Within 24 Hours System WHERE: Clinic Nurse's Recommendation / WHERE: Clinic/[facility] Nursing Plan and Disposition Referred patient to higher level of care Provided location of Urgent Care Center Other course(s) of action Generated msg to PACT/Provider Provided guidance for worsening symptoms: *Caller/Patient* advised to call facilities [place] Clinical Contact Center or seek immediate medical attention for new or worsening symptoms Nurse Summary Nurse Summary: Franklin reports penile discharge white pus x 2 days. Denies pain or burning with urination, hematuria or back/flank pain. Vet currently awaiting PACT assignment. [facility] Recommendation: Provider within 24 hours [facility] profiles currently assigned to include [facility] Provided [phone] to confirm eligibility Franklin agreed to plan of care and will go to the following in-network UC: [facility] [address] [place] [id number] [facility] [address] [place] [address] Franklin provided [place] Act/[facility] and pharmacy options as per [email or web address].or.gov/find-l [email or web address] Franklin advised to bring a valid government-issued photo ID. Franklin advised do not pay a copayment at time of the urgent care visit. Also provided [phone] if further assistance is needed at the urgent care or pharmacy. advised a note will be forwarded to PACT for follow up. Vet aware may seek care at [place] facilities offering UC or ED. Advised of [facility] Clinical Contact Center triage , available 24/09. Clinical Contact Center Codes Clinic/Location: V1 CWM PHONE CCC RN Decision Support System Output: Triage Complete Triage Date: 03/11/2024, 10:09 AM Triage Note: Decision Support Tool Used: [facility] Phone Triage 11 Mar 2024 15:07:43 +0000 [facility] Demographics 28 y/o Male Results CC: Penile Discharge Software suggested: Within 24 Hours Software suggested follow-up location: Clinic Values and Measures Duration of CC: 2 Days Positive Responses HPI: increased urinary frequency HPI: pelvic pain, lower VS: temperature not taken Negative Responses Denies: HPI: dysuria Denies: HPI: hematuria, with clots Denies: HPI: symptoms similar to past prostatitis Denies: HPI: testicular pain, unilateral Denies: HPI: testicular swelling, unilateral Denies: HPI: vomiting Denies: MEDS: chemotherapy Denies: PMH: diabetes Denies: PMH: HIV positive Denies: PSH: organ transplant IMPORTANT: This note was created by [facility] Clinical Contact Center staff. Please do not alert the staff member by adding them as a signer for future communications. Alerts are not monitored by this user. /delroy/ Bety Ash RN VISN 1 MATTHEW JIANG Signed: 03/11/2024 10:27 BETY ASH [facility]
--- OUTSIDE RECORDS SUMMARY | 2024-04-07 07:46 | XMS_ITS | Continuity of Care Document ---
Author Name [facility] Organization [facility] Care Team Providers Care Labor Service Representative Name Role Phone [facility] Unavailable Unavailable Problems Combined list of problems from Department of Defense and Veterans Affairs facilities. It does not include entries that were removed or entered in error. Problem Status Onset Date Problem Type Date of Resolution Comments Source Alcohol abuse, uncomplicated Active 11/13/19 17 Condition DoD Cannabis use, unspecified, uncomplicated Active 11/13/19 17 Condition DoD Cocaine use, unspecified, uncomplicated Active 11/13/19 17 Condition DoD Cocaine user Active Condition [facility] [place] [facility] History of alcohol abuse Active Condition Mar 18, 2024 Entered By: RAFIA JOHNSON Comment: Alcohol abuse, uncomplicated [facility] [place] [facility] History of cannabis abuse Active Condition [facility] [place] [facility] Diagnosis: ICD-10-CM M25.521 Pain in right elbow Active Diagnosis [facility] [place] [facility] Allergies, Adverse Reactions, Alerts Combined list of allergies from Department of Defense and Veterans Affairs facilities. It does not include entries that were removed or entered in error. Substance Category Reaction Severity Reaction type Status Date Reported Comments Source No Known Allergies Drug allergy (disorder) active 11/23/2014 Valentin Garcia [place] Immunizations Combined list of available immunizations from the Department of Defense and Veterans Affairs facilities. Immunization Series Date Given Administered By Site Reaction Lot Number CVX Code Drug Director Of Direct Marketing Status Comments Source TDAP 2021 115 complet ed [place] [facility] [place] [facility] COVID-19 (CLOTILDE), VECTOR-NR, [id number], PF, 0.5 ML 1 2020 212 complet ed JSN; [id number]; 1 [place] [facility] [place] [facility] TYPHOID, VICPS 1 2016 101 complet ed yphoid Vi capsular polysacch aride vaccine Lot#: [id number] Mfr: SANOFI PASTEUR [facility] typhoid Vi capsular polysaccharid e vaccine 1 2016 BJ KHOURY [id number] Sanofi Pasteur (PMC) complet ed typhoid Vi capsular polysacch aride vaccine DoD Influenza, injectable, quadrivalent, preservative free 1 2016 [id number] 150 Seqirus (SEQ) comple t ed Influenza , injectabl e, quadrival ent, preservat junior free DoD Influenza, injectable, MDCK, preservative free, quadrivalent 2016 GORSLINE, () Not Given Influenza , injectabl e, MDCK, preservat junior free, quadrival ent DoD influenza, seasonal, injectable 2015 [id number] Unknown complet ed influenza , seasonal, injectabl e 01/03/16 Given Ambulat ory Pharmac y Influenza, seasonal, injectable 1 2015 [id number] 141 Unknown (UNK) comple t ed Influenza , seasonal, injectabl e DoD hepatitis B adult vaccine 2015 zzLef t Arm [id number] 43 GlaxoSmithKli ne complet ed hepatitis B adult vaccine 05/24/15 Given Ambulat ory Pharmac y HEP B, ADULT 3 2015 43 complet ed hepatitis B vaccine, adult dosage Lot#: [id number] [facility] hepatitis B vaccine, adult dosage 1 2015 GORDY RAMÍREZ [id number] 43 [facility] ([facility] complet ed hepatitis B vaccine, adult dosage DoD influenza, live, intranasal,qu adrivalent 2014 [id number] Medimmune Inc comple t ed influenza , live, intranasa l,quadriv alent 12/22/14 Given Ambulat ory Pharmac y influenza, live, intranasal, quadrivalent 1 2014 [id number] 149 [employer] (MED) complet ed influenza , live, intranasa l, quadrival ent DoD hepatitis B pediatric/ado lescent 2014 [id number] 08 GlaxoSmithKli ne complet ed hepatitis B pediatric /adolesce nt 11/23/14 Given Ambulat ory Pharmac y HEP B, ADULT 2 2014 43 complet ed hepatitis B vaccine, pediatric or pediatric /adolesce nt dosage Lot#: [id number] [facility] hepatitis B vaccine, pediatric or pediatric/ado lescent dosage 2 2014 [id number] 08 [employer] (SKB) complet ed hepatitis B vaccine, pediatric or pediatric /adolesce nt dosage DoD adenovirus vaccine, live 2014 [id number] Teva Pharmaceutica ls complet ed adenoviru s vaccine, live 09/20/14 Given Ambulat ory Pharmac y hepatitis B pediatric/ado lescent 2014 [id number] 08 GlaxoSmithKli ne complet ed hepatitis B pediatric /adolesce nt 09/20/14 Given Ambulat ory Pharmac y ADENOVIRUS TYPES 4 AND 7 1 2014 143 complet ed Adenoviru s, type 4 and type 7, live, oral Lot#: [id number] Mfr: LAM JOHNSON S [facility] HEP B, ADOLESCENT OR PEDIATRIC 1 2014 08 complet ed hepatitis B vaccine, pediatric or pediatric /adolesce nt dosage Lot#: [id number] [facility] measles, mumps and rubella virus vaccine 1 2014 UNK 03 Unknown (UNK) Not Given measles, mumps and rubella virus vaccine DoD hepatitis B vaccine, pediatric or pediatric/ado lescent dosage 1 2014 [id number] 08 [employer] (SKB) complet ed hepatitis B vaccine, pediatric or pediatric /adolesce nt dosage DoD varicella virus vaccine 1 2014 UNK 21 Unknown (UNK) Not Given varicella virus vaccine DoD hepatitis A vaccine, adult dosage 1 2014 UNK 52 Unknown (UNK) Not Given hepatitis A vaccine, adult dosage DoD Adenovirus, type 4 and type 7, live, oral 1 2014 [id number] 143 Lam Kincaid (BRR) complet ed Adenoviru s, type 4 and type 7, live, oral DoD tetanus, diphtheria, acellular pertu is 2014 [id number] 115 sanofi pasteur complet ed tetanus, diphtheri a, acellular pertussis 09/16/14 Given Ambulat ory Pharmac y meningococcal A,C,Y,W-135 (MCV4P) 2014 [id number] 114 GlaxoSmithKli ne complet ed meningoco ccal A,C,Y,W-1 35 (MCV4P) 09/16/14 Given Ambulat ory Pharmac y poliovirus vaccine, inactivated 2014 [id number] 10 sanofi pasteur complet ed polioviru s vaccine, inactivat ed 09/16/14 Given Ambulat ory Pharmac y MENINGOCOCCAL MCV4P 1 2014 114 complet ed meningoco ccal polysacch aride (groups A, C, Y and W-135) diphtheri a toxoid conjugate vaccine (MCV4P) Lot#: [id number] [facility] POLIO, UNSPECIFIED FORMULATION 1 2014 89 complet ed polioviru s vaccine, inactivat ed Lot#: [id number] Mfr: SANOFI PASTEUR [facility] TDAP 2014 115 complet ed tetanus toxoid, reduced diphtheri a toxoid, and acellular pertussis vaccine, adsorbed Lot#: [id number] Mfr: SANOFI PASTEUR [facility] [employer] [facility] poliovirus vaccine, inactivated 1 2014 [id number] 10 Sanofi Pasteur (PMC) complet ed polioviru s vaccine, inactivat ed DoD meningococcal polysaccharid e (groups A, C, Y and W-135) diphtheria toxoid conjugate vaccine (MCV4P) 1 [id number] [place] [address] (SKB) complet ed meningoco ccal polysacch aride (groups A, C, Y and W-135) diphtheri a toxoid conjugate vaccine (MCV4P) DoD tetanus toxoid, reduced diphtheria toxoid, and acellular pertu is vaccine, adsorbed 1 2014 [id number] 115 Sanofi Pasteur (PMC) complet ed tetanus toxoid, reduced diphtheri a toxoid, and acellular pertussis vaccine, adsorbed [facility] Vital Signs Combined list of inpatient and outpatient Vital Signs from Department of Defense and Veterans Affairs, ranging from 12 months to all on record, depending upon the facility. Vital Sign Value Date Comments Source SYSTOLIC BLOOD PRESSURE 128 03/30/19 25 13:46:22 [facility] DIASTOLIC BLOOD PRESSURE 82 025 13:46:22 [facility] PULSE OXIMETRY 97 03/30/2024 13:46:22 [facility] WEIGHT 166.3 03/30/2024 13:46:22 [facility] BMI 21kg/m2 03/30/2024 13:46:22 [facility] PAIN 0 03/30/2024 13[facility]46:22 [facility] HEIGHT 74 03/30/2024 13:46:22 [facility] TEMPERATURE 97.4 03/30/2024 13:46:22 [facility] PULSE 77 03/30/2024 13[facility]46:22 [facility] RESPIRATION 16 03/30/2024 13:46:22 [facility] No data available for this section Ambulatory Pharm acy Encounters Combined list of: 1) Encounters from Department of Veterans Affairs facilities going back up to thelast 18 months. 2) Encounters from the Department of Defense facilities going back up to 280 months. Location Location Details Encounter Type Encounter Number Reason For Visit Attending Provider ADM Date DC Date Status Disposition Source [place] [place] OUTPATIENT [id number] MARCELINO BURGOS 09/16 Released w/o Limitations [place] [place]) OUTPATIENT [id number] Notes Entered by: RAMÓN ROGER 17 Sep 2014 0756 ------- ------- ------- ------- -- hearing test RAMÓN YATES 09/17 Released w/o Limitations [place] ) [place] OUTPATIENT [id number] Notes Entered by: TORSTEN WILKERSON RA 20 Sep 2014 0613 ------- ------- ------- ------- -- IMM TRANG MENDIETA 09/20 Released [place] Limitations [place] [place]) OUTPATIENT [id number] Notes Entered by: KELECHI CASTAÑEDA 23 Nov 2014 0813 ------- ------- ------- ------- -- IMM-HEP B(P) ROSALBA SANCHEZ 11/23 Released w/o Limitations [place] Valentin [place]([facility]) OUTPATIENT [id number] Notes Entered by: KELECHI CASTAÑEDA 22 Dec 2014 1012 ------- ------- ------- ------- -- IMM-FLU MIST LEAH THOMPSON 12/22 Released w/o Limitations [place]) REANNA Salmon([facility] Physical Exams Cl) OUTPATIENT [id number] Notes Entered by: SA HAMLET RAMÍREZ 24 May 2015 1048 ------- ------- ------- ------- -- ENGERIX B (ADULT) GORDY RAMÍREZ 05/23 Released w/o Limitations REANNA Bain([facility] Physica l Exams Cl) REANNA Salmon([facility]) OUTPATIENT [id number] Notes Entered by: Alexander CONNOLLY 22 Jun 2015 1617 ------- ------- ------- ------- -- STEPHIE GALVAN 06/22 Released w/o Limitations REANNA Bain([facility] [address]) REANNA Salmon([facility]) OUTPATIENT [id number] Notes Entered by: EDMUNDO MALIK 13 Sep 2015 1111 ------- ------- ------- ------- -- p/u glasses JOB, BARBRA E 09/12 Released w/o Limitations [facility] REANNA Malcolm([facility] REANNA Nuñez([facility]) OUTPATIENT [id number] REE / CL FITTING BELL MARSHALL 10/06 Released w/o Limitations [facility] REANNA Malcolm([facility]) [facility] REANNA Nuñez([facility]) OUTPATIENT [id number] Notes Entered by: EDMUNDO MALIK 17 Oct 2015 1355 ------- ------- ------- ------- -- p/u glasses JOAN DAWSON Cristiano 10/16 Released w/o Limitations [facility] REANAN Malcolm([facility] Cl) REANNA Salmon([facility] [address]) OUTPATIENT [id number] Itzel Cloud ALEXIS ARRIAGA I 10/18 Released w/o Limitations [facility] REANNA Malcolm([facility] 125) [facility] REANNA Nuñez([facility] S[facility] 125) TELE CONSULT [id number] Notes Entered by: FR KAJAL ARRIAGA I 17 Apr 2016 1454 ------- ------- ------- ------- -- STI screeni lab results ALEXIS ARRIAGA I 04/17 [facility] REANNA Malcolm([facility] S0[facility] 125) [facility] REANNA Nuñez([facility] S0[facility] 125) TELE CONSULT [id number] Notes Entered by: LEATHA MAURER 25 Jul 2016 1304 ------- ------- ------- ------- -- STD Check ROOPA MAURER 07/25 REANNA Bain([facility] S[facility] 125) REANNA Salmon([facility] S[facility] 125) OUTPATIENT [id number] PHA [place] STEPHIE O 08/18 Released w/o Limitations [facility] Valentin LazarREANNA lemus([facility] [address]) [facility] REANNA Nuñez([facility] S[facility] 125) OUTPATIENT [id number] IV IL STD CHECK STEPHIE STRINGER O 08/24 Released w/o Limitations Av [facility] REANNA Malcolm([facility]) [facility] REANNA Nuñez([facility] 125) OUTPATIENT [id number] Notes Entered by: MELITON FELDMAN 27 Sep 2016 1050 ------- ------- ------- ------- -- Annual Audiogr am MARIIA MAYO 09/27 Released w/o Limitations [facility] REANNA Malcolm([facility] S0[facility] 125) REANNA Salmon([facility] S[facility] 125) OUTPATIENT [id number] Notes Entered by: MELITON FELDMAN 13 Nov 2016 1347 ------- ------- ------- ------- -- Annual Audiogr am MARIIA MAYO NMSophia 11/13 Released w/o Limitations [facility] REANNA Malcolm([facility]) REANNA Salmon([facility]) OUTPATIENT [id number] Chapter (Separa tiyahaira) DARLENE CERNA 11/14 Released w/o Limitations [facility] REANNA Malcolm([facility]) REANNA Salmon([facility] 125) OUTPATIENT [id number] CHAPTER ANDREY LUCIA 11/14 Released w/o Limitations [facility] REANNA Malcolm([facility] [address]) REANNA Salmon([facility]) OUTPATIENT [id number] ree/clx OSCAR ROLLINS 11/20 Released w/o Limitations [facility] REANNA Malcolm([facility]) [facility] Suzanne tREANNA([facility]) OUTPATIENT [id number] PDHA/SR P CARMEL CASE 02/05 Released w/o Limitations [facility] Nagifemi ghtREANNA([facility]) [facility] Encounter [id number] 03/09 [facility] En[facility] [id number] 03/11 [facility] Encounter [id number] 03/11 [facility] Out[facility] Encounter [id number] 03/18 [facility] OFFICE O/P EST MOD 30 MIN [id number] Diagnos is: ICD-10- CM M25.521 Pain in right elbow<b r/> CARLOS A CUELLO RD 03/30 [facility] Procedures Combined list of: 1) Procedures from Department of Veterans Affairs facilities going back up to thelast 18 months, not all VA non-surgical procedures are included; 2) All procedures from the Department of Defense facilities. Procedure Procedure Type Code Date Perfomer Comments Sourc e No data available for this section Ambulato ry Pharmacy INFLUENZA VIRUS VACCINE, QUADRIVALENT, LIVE (LAIV4), FOR INTRANASAL USE 2014 [facility] HEPATITIS B VACCINE (HEPB), PEDIATRIC/ADOLESCE NT DOSAGE, 3 DOSE SCHEDULE, FOR INTRAMUSCULAR USE 2014 [facility] INJECTION, PENICILLIN G BENZATHINE, 100,000 UNITS 2014 [facility] PURE TONE AUDIOMETRY (THRESHOLD), AUTOMATED; AIR ONLY 2014 [facility] INTERPRETATION OR EXPLANATION OF RESULTS OF PSYCHIATRIC, OTH MEDICAL EXAMS/PROCEDURES, OR OTH ACCUMULATED DATA TO FAMILY OR OTH RESPONSIBLE PERSONS,OR ADVISING THEM HOW TO ASSIST PATIENT 2017 DoD COMPUTERIZED CORNEAL TOPOGRAPHY, UNILATERAL OR BILATERAL, WITH INTERPRETATION AND REPORT 2016 [facility] BRIEF EMOTIONAL/BEHAVIOR AL ASSESSMENT (EG, DEPRESSION INVENTORY, ATTENTION-DEFICIT/ HYPERACTIVITY DISORDER [ADHD] SCALE), WITH SCORING AND DOCUMENTATION, PER STANDARDIZED INSTRUMENT 2016 DoD VIS FUNCT SCREEN,AUTOMAT/RAFAT I-AUTOMAT BILAT QUANT DETERM VISUAL ACUITY,OCULAR ALIGN,COLOR VISION,PSEUDOISOCH ROMAT PLATES,& FIELD VIS (MAY INC ALL/SOME SCRN DETERM FOR CONTRAST SENSITIV,VIS UND GLARE) 2016 DoD SUPP &MATERIAL (EXCEPT SPECTACLE),PROVID, THE PHYS/OTH QUALIFIED HEALTH CASH CHECKER OVER &ABOVE THOSE USUALLY INCLD W THE OFFICE VISIT/OTH SER RENDERED (LIST DRUG,TRAYS,SUPP,OR MATERIAL PROVID) 2016 DoD BRIEF EMOTIONAL/BEHAVIOR AL ASSESSMENT (EG, DEPRESSION INVENTORY, ATTENTION-DEFICIT/ HYPERACTIVITY DISORDER [ADHD] SCALE), WITH SCORING AND DOCUMENTATION, PER STANDARDIZED INSTRUMENT 2016 DoD SUPP &MATERIAL (EXCEPT SPECTACLE),PROVID, THE PHYS/OTH QUALIFIED HEALTH CASH CHECKER OVER &ABOVE THOSE USUALLY INCLD W THE OFFICE VISIT/OTH SER RENDERED (LIST DRUG,TRAYS,SUPP,OR MATERIAL PROVID) 2016 [facility] SCREENING TEST OF VISUAL ACUITY, QUANTITATIVE, BILATERAL 2016 DoD COMPUTERIZED CORNEAL TOPOGRAPHY, UNILATERAL OR BILATERAL, WITH INTERPRETATION AND REPORT 2015 [facility] DETERMINATION OF VENOUS PRESSURE 2015 DoD IMMUNIZATION ADMINISTRATION (INCLUDES PERCUTANEOUS, INTRADERMAL, SUBCUTANEOUS, OR INTRAMUSCULAR INJECTIONS); 1 VACCINE (SINGLE OR COMBINATION VACCINE/TOXOID) 2015 DoD Psychiatric Evaluation Explanation Of Exam Results Psychiatric Evaluation Explanation Of Exam Results 33893 2017 ALTEPETERCARLOS [facility] Computerized Corneal Topography Computerized Corneal Topography 38226 2016 OSCAR ROLLINS DoD Prescription And Fitting Bilateral Corneal Lenses (Not For Aphakia) Prescription And Fitting Bilateral Corneal Lenses (Not For Aphakia) 45133 2016 OSCAR ROLLINS Determination Of Refractive State Determination Of Refractive State 51379 2016 OSCAR ROLLINS Ophthalmological Prior Patient Start Comprehensive Care Ophthalmological Prior Patient Start Comprehensive Care 39276 2016 OSCAR ROLLINS [facility] Psychometric Emotional / Behavioral A e ment Psychometric Emotional / Behavioral Assessment 36105 2016 DAYRON FONTANA [facility] Psychiatric Diagnostic Evaluation Psychiatric Diagnostic Evaluation 99211 2016 DAYRON FONTANA [facility] Visual Function Screening Visual Function Screening 16617 2016 DARLENE CERNA Psychometric Emotional / Behavioral A e ment Psychometric Emotional / Behavioral Assessment 42141 2016 DENISEROGERCARLOS CASH [place] Psychiatric Diagnostic Evaluation Psychiatric Diagnostic Evaluation 36904 2016 ALTCARLOS QUIÑONES A [facility] Threshold Audiogram (Pure Tone) Automated Threshold Audiogram (Pure Tone) Automated 0208T 2016 MARIIA MAYO Physician Supervised Services Provision Of Special Supplies Physician Supervised Services Provision Of Special Supplies 67597 2016 MARIIA MAYO Physician Supervised Services Provision Of Special Supplies Physician Supervised Services Provision Of Special Supplies 93428 2016 MARIIA MAYO Threshold Audiogram (Pure Tone) Automated Threshold Audiogram (Pure Tone) Automated 0208T 2016 MARIIA MAYO Screening Test Of Visual Acuity, Quantitative, Bilateral Screening Test Of Visual Acuity, Quantitative, Bilateral 33648 2016 STEPHIE STRINGER Venous Pre ure Venous Pressure 68238 2016 STEPHIE STRINGER Computerized Corneal Topography Computerized Corneal Topography 49606 2015 BELL MARSHALL Prescription And Fitting Bilateral Corneal Lenses (Not For Aphakia) Prescription And Fitting Bilateral Corneal Lenses (Not For Aphakia) 01000 2015 BELL MARSHALL [facility] [facility] Fitting Monofocal Except For Aphakia [facility] Fitting Monofocal Except For Aphakia 02381 2015 BELL MARSHALL Determination Of Refractive State Determination Of Refractive State 99645 2015 BELL MARSHALL Ophthalmological New Patient Start Comprehensive Care Ophthalmological New Patient Start Comprehensive Care 31138 2015 BELL MARSHALL Screening Test Of Visual Acuity, Quantitative, Bilateral Screening Test Of Visual Acuity, Quantitative, Bilateral 74900 2015 STEPHIE STRINGER Venous Pre ure Venous Pressure 34592 2015 STEPHIE STRINGER Hepatitis B Vaccine (Active) Adult Dosage Hepatitis B Vaccine (Active) Adult Dosage 95674 2015 GORDY RAMÍREZ Hep B - Adult; Series #: 1; 1.0 mL; IM; Left Arm; [facility] [employer]; Lot: [id number]; VIS given (Brianna: 04/05/11). DoD Immunization Administration By Injection, One Vaccine Immunization Administration By Injection, One Vaccine 93666 2015 GORDY RAMÍREZ DoD Influenza Virus Vaccine Live Attenuated Intranasal Quadrivalent Influenza Virus Vaccine Live Attenuated Intranasal Quadrivalent 38441 2014 LEAH THOMPSON DoD Immunization Admin By Intranasal / Oral Route One Vaccine Immunization Admin By Intranasal / Oral Route One Vaccine 64160 2014 LEAH THOMPSON DoD Hepatitis B Vaccine (Active); Pediatric/Adolesce nt 3 Dose Schedule Hepatitis B Vaccine (Active); Pediatric/Adolesce nt 3 Dose Schedule 37111 2014 NYA SHEIKH DoD Immunization Administration By Injection, One Vaccine Immunization Administration By Injection, One Vaccine [id number] NYA SHEIKH [facility] Injection, penicillin g benzathine, 100,000 units 2014 TRANG MENDIETA Visit for an IM injection of 1.2 million/units per 2 mL of Bicillin L-A (Penicillin G Benxathine injectable suspension). Was given in the Left upper quadrant, left buttock. Patient was observed for 15 min with no adverse reactions. DoD Immunization Administration By Injection, One Vaccine Immunization Administration By Injection, One Vaccine [id number] TRANG MENDIETA DoD Immunization Administration By Injection, Each Additional Vaccine Immunization Administration By Injection, Each Additional Vaccine [id number] TRANG MENDIETA [facility] Tdap Vaccine Tdap Vaccine 97270 2014 TRANG MENDIETA Visit for an IM injection of 0.5mL of Boostrix (Tetanus and Diphtheria Toxoids and Acellular Pertussis). Was given in the Right Deltoid. Patient was observed for 15 min with no adverse reactions. [facility] Meningococcal Polysaccharide Diphtheria Toxoid Conjugate Vaccine 2014 TRANG MENDIETA Visit for an IM injection of 0.5mL of Meningococcal Vaccine (Menactra). Was given in the Left Deltoid. Patient was observed for 15 min with no adverse reactions. DoD Vaccines Viral Polio, Inactivated Vaccines Viral Polio, Inactivated 88820 2014 TRANG MENDIETA Visit for an IM injection of 0.5mL of IPOL (Poliovirus Vaccine Inactivated). Was given in the Right Deltoid. Patient was observed for 15 min with no adverse reactions. DoD Hep B Vaccine (Active); Adolescent (2 Dose Schedule) Hep B Vaccine (Active); Adolescent (2 Dose Schedule) 41180 2014 TRANG MENDIETA Visit for an IM injection of 0.5mL of Hepatitis B (Engerix-B) pediatric dose. Was given in the Right Deltoid. Patient was observed for 15 min with no adverse reactions. [facility] Immunization Admin Intranasal / Oral Each Additional Vaccine Immunization Admin Intranasal / Oral Each Additional Vaccine 85669 2014 TRANG MENDIETA [facility] Vaccines Adenovirus Type 4 Live, For Oral Use Vaccines Adenovirus Type 4 Live, For Oral Use 76817 2014 RTANG MENDIETA A single vaccine dose adminstered orally. [facility] Vaccines Adenovirus Type 7 Live, For Oral Use Vaccines Adenovirus Type 7 Live, For Oral Use 07441 2014 TRANG MENDIETA A single vaccine dose adminstered orally. [facility] Physician Supervised Injection Intramuscular Antibiotic Physician Supervised Injection Intramuscular Antibiotic 08751 2014 TRANG MENDIETA [facility] Threshold Audiogram (Pure Tone) Automated Threshold Audiogram (Pure Tone) Automated 0208T 2014 RAMÓN YATES [facility] Social History Combined list of available smoking, tobacco, and other social history from Department of Defense and Veterans Affairs facilities. Social History Type Response Date Comment Sour e Tobacco smoking status NHIS [facility]ACCO [facility] History of tobacco use NE-TOBACCO NEVER USED OTHER TYPE [facility] Male 12/17/2016 Ambulatory Pha rmacy Sexual Orientation Ambula tory Pharmacy Gender identity Ambulator y Pharmacy This section is an empty social history section. [facility] Assessment and Plan Combined list of future care activities from Department of Defense and Veterans Affairs facilities (e.g., assessment and plan notes, appointments, orders, and referrals). Additional future care activities may be listed in the Plan of Care section. Result Assessment and Plan Date Source Assessment and Plan No data available for this section 04/07/2024 Ambulatory Pharmacy Plan of Care List of future care activities from [facility] facilities. Additional future care activities may be listed in the Assessment and Plan section. Date/Time Care Activity Care Activity Detail Facili ty 04/07/2024 AMBULATORY - MEDICINE AMBULATORY - MEDICI [facility] 03/30/2024 Laboratory - Automotive Sales Professional ry Order CBC AND DIFF (AUTO) BLOOD (LAV-BLOOD) [facility] [place] [facility] 03/30/2024 Laboratory - Automotive Sales Professional ry Order BASIC METABOLIC PANEL (fasting) BLOOD (SST-SERUM) [facility] [place] [facility] 03/30/2024 Laboratory - Automotive Sales Professional ry Order LIVER FUNCTION BLOOD (SST[facility]SERUM) [facility] 03/30/2024 Laboratory - Automotive Sales Professional ry Order LIPID PANEL FASTING BLOOD (SST-SERUM) [facility] 03/30/2024 Laboratory - Automotive Sales Professional ry Order TSH BLOOD (SST-SERUM) [facility] [place] [facility] 03/30/2024 Laboratory - Automotive Sales Professional ry Order URINALYSIS CLEAN CATCH URINE [facility] [place] [facility] 03/30/2024 Consult Order [facility] RTHO GENERAL Cons Civil Engineering [employer] Draftsperson's Choice [facility] Functional Status Combined list of recent functional and cognitive assessments recorded at [facility] of Defense and [facility] Affairs ([place] Functional Vermillion Measurement (FIM) Scale: 1 = Total Assistance (Subject = 0% +), 2 = Maximal Assistance (Subject = 25% +), 3 = Moderate Assistance (Subject = 50% +), 4 = Minimal Assistance (Subject = 75% +), 5 = Supervision, 6 = Modified Vermillion (Device), 7 = Complete Vermillion (Timely, Safely). Assessment Date/Time Source Assessment Type Assessment Skill Assessment Score Assessment Details No data available for this section
--- OUTSIDE RECORDS SUMMARY | 2024-04-07 07:46 | XMS_ITS | Clinical Summary ---
Author Organization [facility] Address [address] [place] [phone] Phone Care Team Providers Care Maritime Officer Name Role Phone Mayuri Quintanilla MD Primary Care Provider Unavailabl e Immunizations Name Administration Dates Next Due DTP 1995,1995 DTaP 5 06/12/2000,01/18/1997,1995 Hep A, ped/adol 09/13/2010 Hep B, ped/adol 1995,1995,1995 Hib (PRP-T) 11/09/1996, 6,1995, 996 IPV 06/12/2000 Influenza Split 11/01/2011 Influenza, injectable, trivalent 11/30/2008 MMR 06/21/1999,1996 Meningococcal Conj (Menactra) MCV4P 09/18/2007 OPV 1995,1995,1995 Tdap 09/18/2007 Varicella 09/18/2007,11/05/1997 Family History Relation Name Status Comments Father Alive Father: Alive a nd well Mother Mother: Asthma, Migraines, Diabetes mellitus, Hypothyroidism Other 1 Grandfather: Di abetes mellitus Other 2 Aunt: Migraines Other 3 Family history of Obesity Social History Tobacco Use Types Packs/Day Years Used Date Smoking Tobacco: Never Comments:Never smoker Sex and Gender Information Value Date Recorded Sex Assigned at Not on file Legal Sex Male 4:47 PM EDT Gender Identity Not on file Sexual Orientation Not on file Last Filed Vital Signs Vital Sign Reading Time Taken Comments Blood Pressure 100/70 09/27/2012 12:00 AM EDT Pulse 80 09/13/2010 12:00 AM EDT Temperature 36.4 ??C (97.6 ??F) 09/27/2012 12:00 AM E DT Respiratory Rate - - Oxygen Saturation - - Inhaled Oxygen Concentration - - Weight 67.1 kg (148 lb) 09/27/2012 12:00 AM EDT Height 186.7 cm (6' 1.5 ) 09/27/2012 12:00 AM ED T Body Mass Index 19.26 09/27/2012 12:00 AM EDT Plan of Treatment Health Maintenance Due Date Last Done Comments Hepatitis A Vaccines (2 of 2 - 2-dose series) 03/16/2011 09/13/2010 DTaP,Tdap,and Td Vaccines (7 - Td or Tdap) 09/17/2017 09/18/2007, 06/12/2000, 01/18/1997, Additional history exists Influenza Vaccines (#1) 2023 11/01/2011, 11/30 COVID-19 Vaccine ( season) 2023 Hepatitis B Vaccines Completed 1995, 1995, 1995 HIB Vaccines Completed 11/09/1996, 09/1995, 1995, Additional history exists MMR Vaccines Completed 06/21/1999, 1996 IPV Vaccines Completed 06/12/2000, 0 09/1995, 1995, Additional history exists Meningococcal Vaccine Aged Out 09/18/2007 No hemanth brett eligible based on patient's age to complete this topic Varicella Vaccines Completed 09/18/2007, 11/05/1997 HPV Vaccines Aged Out No longer eligi ble based on patient's age to complete this topic Men B Vaccine Aged Out No longer elig ible based on patient's age to complete this topic Pneumococcal Vaccine Aged Out No long er eligible based on patient's age to complete this topic Care Teams Maritime Officer Relationship Specialty Start Date End Date Mayuri Quintanilla MD PCP - General 10/12/16
--- OUTSIDE RECORDS SUMMARY | 2024-04-07 07:46 | XMS_ITS | Data Portability ---
Author Organization [facility] [id number] Address [address] [place] [address] Assessment No assessment recorded. Plan of Treatment Reminders Order Date Submit Date Provider Last Modified By Organization Details Last Modified Time Details Appointments None record ed. Lab None record ed. Referral None record ed. Procedures None record ed. Surgeries None record ed. Imaging None record ed. Medication Orders None record ed. Patient TargetsNo targets recorded. Patient InstructionsNo instructions recorded. Reason for Referral None Reported. Procedures Surgical History Date Name Laterality Status Provider Name and Address Organization Details Recorded Time 3 OC-UDS Send Out Template NON DOT completed SAMI FAVIAN [place] [facility] 08/17/2022 14:56:24 Imaging Results None recorded. Procedure Notes None recorded. Medical Equipment None Reported. Vitals None Recorded Social History None recorded. Functional Status None recorded. Mental Status None recorded. Family History Nothing Reported. Medical History No medical history recorded. Past Encounters Encounter ID Performer Location Encounter Start Date Encounter Closed Date Diagnosis/Indication Diagnosis SNOMED-CT Code Diagnosis ICD10 Code Diagnosis Note [id number] [address] [address] [place] [address] 10/29/2019 09:04:50 10/29/2019 09:44:29 [id number] [address] [place] [address] 11/25/2019 18:45:34 11/25/2019 19:23:06 [id number] SHANTI MORENO MD [address] [place] [address] 08/17/2022 13:27:37 08/17/2022 14:56:26 History and physical examination, occupation [id number] Z02.1 Health Concerns Section Related Observation LastModified by Organization Detai ls LastModified Time None Recorded Concern Status LastModified by Organization Details LastModified Time None Recorded Advance Directives Directive None Recorded Payers Encounter Date Sequence Insurance Name Policy Number Policy Sánchez Covered Member ID Sánchez Member ID Guarantor Name 08/17/2022 OC-ESCREEN Emanuel Talley [id number] Emanuel Talley
== END 2024-04-07 07:44 | disposition home or self-care (01) ==
LOC: HO.HOSX 07:43
PROVIDERS: Visit Provider Physician Assistant
DX: S52.121D Displaced fracture of head of right radius, subsequent encounter for closed fracture with routine healing (principal)
CPT/HCPCS: 73080; 99212

== ENCOUNTER 2024-04-07 09:49 | Outpatient (AMB) | payer OTHER, SELFPAY ==
--- NOTE | 2024-04-07 10:01 | MHC.OFFVIS ---
Intake Visit Reasons: OV-RT Closed fx of head of radius DOI 03/02/24 Intake Note: Emanuel is a 28 year old right hand dominant male who presents today for a follow up of his right radius fx, DOI 03/02/24. Patient reports he is going very well. He states having little to no pain at the moment. Patient notices slight discomfort with rotation, however he is doing better. He mentions that he hasn't gone to PT but has been looking up exercises online and they gave him relief. Allergies No Known Allergies Allergy (Verified 04/07/24 10:05) HPI HPI OV-RT Closed fx of head of radius DOI 03/02/24: Details: Mr. Talley is a 28 year old right hand dominant male who presents today for a follow up of right radius fx, DOI 03/02/24. Patient reports he is going very well and states that he has little to no pain at the moment. Patient notices slight discomfort with rotation, however he is doing better. He mentions that he hasn't gone to PT but has found some exercises online that he has been performing on his own. 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 No ecchymosis erythema or edema. Lacking about 10 degrees of full extension. Able to perform full flexion. Is able to perform pronation and supination to end range without pain. NVI. Assessment & Plan Assessment & Plan (1) Right radial head fracture: Code(s): S52.121A - Displaced fracture of head of right radius, initial encounter for closed fracture Category: Medical Plan Mr. Talley is a 28 year old right hand dominant male who presents today for a follow up of right radius fx, DOI 03/02/24. Patient reports he is going very well and states that he has little to no pain at the moment. Patient notices slight discomfort with rotation, however he is doing better. He mentions that he hasn't gone to P.T. but has found some exercises online that he has been performing on his own. 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 I did provide him with a work note that states no lifting, pushing, or pulling for the next 4 weeks. 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 He will followup with orthopedics p.r.n., sooner if needed. X-rays of the right elbow which were obtained while in the office today and were reviewed by me, Miriam Jones PA-C, revealed routine healing right radial head fracture. Orders: Orders XR elbow RT min 3V Today M25.529 - Pain in unspecified elbow Coding Level of Care Code Global (50010) Diagnoses Right radial head fracture S52.121A
--- OUTSIDE RECORDS SUMMARY | 2024-04-07 10:30 | XMS_ITS | Encounter Summary ---
Author Organization [facility] Address [address] [place] [address] Phone Care Team Providers Care Bakery Products Checker Name Role Phone Mayuri Quintanilla MD Primary Care Provider Unavailabl e Encounter Details Date Type Department Care Team (Late st Contact Info) Description 10/18/2016 Conversion Encounter [facility] - [address] [address] Social History Tobacco Use Types Packs/Day Years [...] on filedocumented in this encounter Care Teams Bakery Products Checker Relationship Specialty Start Date End Date Mayuri Quintanilla MD PCP - General 10/12/16 documented as of this encounter
--- OUTSIDE RECORDS SUMMARY | 2024-04-07 10:30 | XMS_ITS | Encounter Summary ---
Author Organization [facility] Address [address] [place] [phone] Phone Care Team Providers Care Bagel Maker Name Role Phone Mayuri Quintanilla MD Primary Care Provider Unavailabl e Encounter Details Date Type Department Care Team (Late st Contact Info) Description 12/20/2011 Documentation [facility] [address] [place] [address] Family Medicine, Physician [address] [place], [place] [phone] Social History Tobacco Use Types Packs/Day Years [...] on filedocumented in this encounter Care Teams Bagel Maker Relationship Specialty Start Date End Date Mayuri Quintanilla MD PCP - General 10/12/16 documented as of this encounter
--- OUTSIDE RECORDS SUMMARY | 2024-04-07 10:30 | XMS_ITS | Encounter Summary ---
Author Organization [facility] Address [address] [place] [phone] Phone Care Team Providers Care Options Trader Name Role Phone Mayuri Quintanilla MD Primary Care Provider Unavailabl e Encounter Details Date Type Department Care Team (Late st Contact Info) Description 07/22/2009 Documentation [facility] [address] [place] [address] Family Medicine, Physician [address] [place], [place] [phone] Social History Tobacco Use Types Packs/Day Years [...] on filedocumented in this encounter Care Teams Options Trader Relationship Specialty Start Date End Date Mayuri Quintanilla MD PCP - General 10/12/16 documented as of this encounter
--- OUTSIDE RECORDS SUMMARY | 2024-04-07 10:30 | XMS_ITS | Encounter Summary ---
Author Organization [facility] Address [address] [place] [address] Phone Care Team Providers Care Cloth Weigher Name Role Phone Mayuri Quintanilla MD Primary Care Provider Unavailabl e Encounter Details Date Type Department Care Team (Late st Contact Info) Description 01/30/2010 Documentation [facility] Family [facility] [address] [place] [address] Family Medicine, Physician [address] [place], [place] [phone] Social History Tobacco Use Types Packs/Day Years [...] on filedocumented in this encounter Care Teams Cloth Weigher Relationship Specialty Start Date End Date Mayuri Quintanilla MD PCP - General 10/12/16 documented as of this encounter
--- OUTSIDE RECORDS SUMMARY | 2024-04-07 10:33 | XMS_ITS | Clinical Summary ---
Author Organization [facility] Address [address] [place] [phone] Phone Care Team Providers Care Evidence Specialist Name Role Phone Mayuri Quintanilla MD [...] age to complete this topic Care Teams Evidence Specialist Relationship Specialty Start Date End Date Mayuri Quintanilla MD PCP - General 10/12/16
--- OUTSIDE RECORDS SUMMARY | 2024-04-07 10:33 | XMS_ITS | Continuity of Care Document ---
Author Name [facility] Organization [facility] Care Team Providers Care Rotor Winder Name Role Phone [facility] Unavailable Unavailable Problems Combined list of problems [...] user Active Condition [facility] [place] [facility] History of alcohol abuse Active Condition Mar 18, 2024 Entered By: RAFIA JOHNSON Comment: Alcohol abuse, uncomplicated [facility] [place] [facility] History of cannabis abuse Active Condition [facility] [place] [facility] Diagnosis: ICD-10-CM M25.521 Pain in right elbow Active Diagnosis [facility] [place] [facility] Allergies, Adverse Reactions, Alerts Combined list of [...] Site Reaction Lot Number CVX Code Drug [employer] Status Comments Source TDAP 2021 115 complet ed [place] [facility] [facility] COVID-19 (CLOTILDE), VECTOR-NR, [id number], PF, 0.5 ML 1 2020 212 complet ed JSN; [id number]; 1 [place] [facility] [place] [facility] TYPHOID, VICPS 1 2016 101 complet ed yphoid Vi capsular polysacch aride vaccine Lot#: [id number] Mfr: SANOFI PASTEUR [facility] typhoid Vi capsular polysaccharid e vaccine 1 2016 BJ KHOURY [id number] Sanofi Pasteur (PMC) complet ed typhoid Vi capsular polysacch aride vaccine DoD Influenza, injectable, quadrivalent, preservative free 1 2016 [id number] Seqirus (SEQ) comple t ed Influenza , injectabl e, quadrival ent, preservat junior free DoD Influenza, injectable, MDCK, preservative free, quadrivalent 2016 GORSLINE, () Not Given Influenza , injectabl e, MDCK, preservat junior free, quadrival ent DoD influenza, seasonal, injectable 2015 [id number] Unknown complet ed influenza , seasonal, injectabl e 01/03/16 Given Ambulat ory Pharmac y Influenza, seasonal, injectable 1 2015 [id number] 141 Unknown (UNK) comple t ed Influenza , seasonal, injectabl e DoD hepatitis B adult vaccine 2015 zzLef t Arm [id number] 43 GlaxoSmithKli ne complet ed hepatitis B adult vaccine 05/24/15 Given Ambulat ory Pharmac y HEP B, ADULT 3 2015 43 complet ed hepatitis B vaccine, adult dosage Lot#: [id number] [facility] hepatitis B vaccine, adult dosage 1 2015 GORDY RAMÍREZ [id number] 43 [facility] ([facility]) complet ed hepatitis B vaccine, adult dosage DoD influenza, live, intranasal,qu adrivalent 2014 [id number] 149 Medimmune Inc comple t ed influenza , live, intranasa l,quadriv alent 12/22/14 Given Ambulat ory Pharmac y influenza, live, intranasal, quadrivalent 1 2014 [id number] 149 [employer] (MED) complet ed influenza , live, intranasa l, quadrival ent DoD hepatitis B pediatric/ado lescent 2014 [id number] 08 GlaxoSmithKli ne complet ed hepatitis B pediatric /adolesce nt 11/23/14 Given Ambulat ory Pharmac y HEP B, ADULT 2 2014 43 complet ed hepatitis B vaccine, pediatric or pediatric /adolesce nt dosage Lot#: [id number] [facility] hepatitis B vaccine, pediatric or pediatric/ado lescent dosage 2 2014 [id number] 08 [employer] (SKB) complet ed hepatitis B vaccine, pediatric or pediatric /adolesce nt dosage DoD adenovirus vaccine, live 2014 [id number] 143 Teva Pharmaceutica ls complet ed adenoviru s vaccine, live 09/20/14 Given Ambulat ory Pharmac y hepatitis B pediatric/ado lescent 2014 [id number] 08 GlaxoSmithKli ne complet ed hepatitis B pediatric /adolesce nt 09/20/14 Given Ambulat ory Pharmac y ADENOVIRUS TYPES 4 AND 7 1 2014 143 complet ed Adenoviru s, type 4 and type 7, live, oral Lot#: [id number] Mfr: LAM JOHNSON S [facility] HEP B, ADOLESCENT OR PEDIATRIC 1 2014 08 complet ed hepatitis B vaccine, pediatric or pediatric /adolesce nt dosage Lot#: [id number] [facility] measles, mumps and rubella virus vaccine 1 2014 UNK 03 Unknown (UNK) Not Given measles, mumps and rubella virus vaccine DoD hepatitis B vaccine, pediatric or pediatric/ado lescent dosage 1 2014 [id number] 08 [employer] (SKB) complet ed hepatitis B vaccine, pediatric or pediatric /adolesce nt dosage DoD varicella virus vaccine 1 2014 UNK 21 Unknown (UNK) Not Given varicella virus vaccine DoD hepatitis A vaccine, adult dosage 1 2014 UNK 52 Unknown (UNK) Not Given hepatitis A vaccine, adult dosage DoD Adenovirus, type 4 and type 7, live, oral 1 2014 [id number] 143 Lam Kincaid (BRR) complet ed Adenoviru s, type 4 and type 7, live, oral DoD tetanus, diphtheria, acellular pertu is 2014 [id number] 115 sanofi pasteur complet ed tetanus, diphtheri a, acellular pertussis 09/16/14 Given Ambulat ory Pharmac y meningococcal A,C,Y,W-135 (MCV4P) 2014 [id number] 114 GlaxoSmithKli ne complet ed meningoco ccal A,C,Y,W-1 35 (MCV4P) 09/16/14 Given Ambulat ory Pharmac y poliovirus vaccine, inactivated 2014 [id number] 10 sanofi pasteur complet ed polioviru s vaccine, inactivat ed 09/16/14 Given Ambulat ory Pharmac y MENINGOCOCCAL MCV4P 1 2014 114 complet ed meningoco ccal polysacch aride (groups A, C, Y and W-135) diphtheri a toxoid conjugate vaccine (MCV4P) Lot#: [id number] [facility] WSN PrepairU [facility] POLIO, UNSPECIFIED FORMULATION 1 2014 89 complet ed polioviru s vaccine, inactivat ed Lot#: [id number] Mfr: SANOFI PASTEUR [place] [facility]airU [facility] TDAP 2014 115 complet ed tetanus toxoid, reduced diphtheri a toxoid, and acellular pertussis vaccine, adsorbed Lot#: [id number] Mfr: SANOFI PASTEUR [facility] OncothyreonTRN PrepairU [facility] poliovirus vaccine, inactivated 1 2014 [id number] 10 Sanofi Pasteur (PMC) complet ed polioviru s vaccine, inactivat ed DoD meningococcal polysaccharid e (groups A, C, Y and W-135) diphtheria toxoid conjugate vaccine (MCV4P) 1 [id number] [place] [address] (SKB) complet ed meningoco ccal polysacch aride (groups A, C, Y and W-135) diphtheri a toxoid conjugate vaccine (MCV4P) DoD tetanus toxoid, reduced diphtheria toxoid, and acellular pertu is vaccine, adsorbed 1 2014 [id number] 115 Sanofi Pasteur (PMC) complet ed tetanus toxoid, reduced diphtheri a toxoid, and acellular pertussis vaccine, adsorbed [facility] Vital Signs Combined list of inpatient and outpatient Vital Signs from Department of Defense and Veterans Affairs, ranging from 12 months to all on record, depending upon the facility. Vital Sign Value Date Comments Source SYSTOLIC BLOOD PRESSURE 128 03/30/19 25 13:46:22 [facility] DIASTOLIC BLOOD PRESSURE 82 025 13:46:22 [facility] PULSE OXIMETRY 97 03/30/2024 13:46:22 [facility] [...] [place] [place] OUTPATIENT [id number] MARCELINO BURGOS 09/16 Released w/o Limitations [place] [place]) OUTPATIENT [id number] Notes Entered by: RAMÓN ROGER 17 Sep 2014 0756 ------- ------- ------- ------- -- hearing test RAMÓN YATES 09/17 Released w/o Limitations [place] ) [place] OUTPATIENT [id number] Notes Entered by: TORSTEN WILKERSON RA 20 Sep 2014 0613 ------- ------- ------- ------- -- IMM TRANG MENDIETA 09/20 Released w/o Limitations [place] ) [place]([facility]) OUTPATIENT [id number] Notes Entered by: KELECHI CASTAÑEDA 23 Nov 2014 0813 ------- ------- ------- ------- -- IMM-HEP B(P) ROSALBA SANCHEZ 11/23 Released w/o Limitations [place]) [place]in [place]([facility]) OUTPATIENT [id number] Notes Entered by: KELECHI CASTAÑEDA 22 Dec 2014 1012 ------- ------- ------- ------- -- IMM-FLU MIST LEAH THOMPSON 12/22 Released w/o Limitations [place]([facility]) REANNA Salmon([facility] Physical Exams Cl) OUTPATIENT [id number] Notes Entered by: SA HAMLET RAMÍREZ 24 May 2015 1048 ------- ------- ------- ------- -- ENGERIX B (ADULT) GORDY RAMÍREZ 05/23 Released w/o Limitations REANNA Bain([facility] Physica l Exams Cl) REANNA Salmon([facility] S[address] 125) OUTPATIENT [id number] Notes Entered by: Alexander CONNOLLY 22 Jun 2015 1617 ------- ------- ------- ------- -- STEPHIE GALVAN 06/22 Released w/o Limitations REANNA Bain([facility] [address]) REANNA Salmon([facility]) OUTPATIENT [id number] Notes Entered by: EDMUNDO MALIK 13 Sep 2015 1111 ------- ------- ------- ------- -- p/u glasses JOB, BARBRA E 09/12 Released w/o Limitations Av [facility] REANNA Malcolm([facility]) Av [facility] REANNA Nuñez([facility]) OUTPATIENT [id number] REE / CL FITTING BELL MARSHALL 10/06 Released w/o Limitations Av [facility] REANNA Malcolm([facility]) Av [facility] REANNA Nuñez([facility]) OUTPATIENT [id number] Notes Entered by: EDMUNDO MALIK 17 Oct 2015 1355 ------- ------- ------- ------- -- p/u glasses JOAN DAWSON Cristiano 10/16 Released w/o Limitations Av [facility] REANNA Malcolm([facility]) REANNA Salmon([facility] [address]) OUTPATIENT [id number] Itzel Cloud ALEXIS ARRIAGA I 10/18 Released w/o Limitations Av [facility] REANNA Malcolm([facility] S0[facility] 125) Av [facility] REANNA Nuñez([facility] S0[facility] 125) TELE CONSULT [id number] Notes Entered by: FR KAJAL ARRIAGA I 17 Apr 2016 1454 ------- ------- ------- ------- -- STI screeni lab results ALEXIS ARRIAGA I 04/17 Av [facility] REANNA Malcolm([facility] S0[facility] 125) Av [facility] REANNA Nuñez([facility] S0[facility] 125) TELE CONSULT [id number] Notes Entered by: LEATHA MAURER 25 Jul 2016 1304 ------- ------- ------- ------- -- STD Check ROOPA MAURER 07/25 REANNA Bain([facility] S[facility] 125) REANNA Salmon([facility] S0[facility] 125) OUTPATIENT [id number] PHA [place] STEPHIE O 08/18 Released w/o Limitations Av [facility] Valentin LazarREANNA lemus([facility] [address]) Av [facility] REANNA Nuñez([facility] S01[facility] 125) OUTPATIENT [id number] IV [place] STD CHECK STEPHIE STRINGER O 08/24 Released w/o Limitations Av [facility] REANNA Malcolm([facility] [address]) Av [facility] REANNA Nuñez([facility] S[facility] 125) OUTPATIENT [id number] Notes Entered by: MELITON FELDMAN 27 Sep 2016 1050 ------- ------- ------- ------- -- Annual Audiogr am MARIIA MAYO 09/27 Released w/o Limitations Av [facility] REANNA Malcolm([facility] S0[facility] 125) REANNA Salmon([facility] S0[facility] 125) OUTPATIENT [id number] Notes Entered by: MELITON FELDMAN 13 Nov 2016 1347 ------- ------- ------- ------- -- Annual Audiogr am MARIIA MAYO NMSophia 11/13 Released w/o Limitations Av [facility] REANNA Malcolm([facility] [address]) REANNA Salmon([facility]) OUTPATIENT [id number] Chapter (Separa tiyahaira) DARLENE CERNA 11/14 Released w/o Limitations Av [facility] REANNA Malcolm([facility]) REANNA Salmon([facility] S[facility] 125) OUTPATIENT [id number] CHAPTER ANDREY LUCIA 11/14 Released w/o Limitations Av [facility] REANNA Malcolm([facility] [address]) REANNA Salmon([facility]) OUTPATIENT [id number] ree/clx OSCAR ROLLINS 11/20 Released w/o Limitations Av [facility] REANNA Malcolm([facility]) Av [facility] Suzanne tREANNA([facility] [address] 125) OUTPATIENT [id number] PDHA/SR P CARMEL CASE 02/05 Released w/o Limitations [facility] Nagifemi ghtREANNA([facility] [address]) [facility] En[facility] [id number] 03/09 [facility] En[facility] [id number] 03/11 [facility] [id number] 03[facility]11 [facility] En[facility] [id number] 03/18 [facility] OFFICE O/P EST MOD 30 MIN [id number] Diagnos is: ICD-10- CM M25.521 Pain in right elbow<b r/> CARLOS A CUELLO RD 03/30 [facility] Procedures Combined list of: 1) Procedures from Department of Veterans Affairs facilities going back up to thelast 18 months, not all VA non-surgical procedures are included; 2) All procedures from the Department of Defense facilities. Procedure Procedure Type Code Date Perfomer Comments Sour e INFLUENZA VIRUS VACCINE, QUADRIVALENT, LIVE (LAIV4), FOR INTRANASAL USE 2014 DoD HEPATITIS B VACCINE (HEPB), PEDIATRIC/ADOLESCE NT DOSAGE, 3 DOSE SCHEDULE, FOR INTRAMUSCULAR USE 2014 DoD INJECTION, PENICILLIN G BENZATHINE, 100,000 UNITS 2014 DoD PURE TONE AUDIOMETRY (THRESHOLD), AUTOMATED; AIR ONLY 2014 DoD INTERPRETATION OR EXPLANATION OF RESULTS OF PSYCHIATRIC, OTH MEDICAL EXAMS/PROCEDURES, OR OTH ACCUMULATED DATA TO FAMILY OR OTH RESPONSIBLE PERSONS,OR ADVISING THEM HOW TO ASSIST PATIENT 2017 [facility] COMPUTERIZED CORNEAL TOPOGRAPHY, UNILATERAL OR BILATERAL, WITH INTERPRETATION AND REPORT 2016 [facility] BRIEF EMOTIONAL/BEHAVIOR AL ASSESSMENT (EG, DEPRESSION INVENTORY, ATTENTION-DEFICIT/ HYPERACTIVITY DISORDER [ADHD] SCALE), WITH SCORING AND DOCUMENTATION, PER STANDARDIZED INSTRUMENT 2016 [facility] VIS FUNCT SCREEN,AUTOMAT/RAFAT I-AUTOMAT BILAT QUANT DETERM VISUAL ACUITY,OCULAR ALIGN,COLOR VISION,PSEUDOISOCH ROMAT PLATES,& FIELD VIS (MAY INC ALL/SOME SCRN DETERM FOR CONTRAST SENSITIV,VIS UND GLARE) 2016 DoD SUPP &MATERIAL (EXCEPT SPECTACLE),PROVID, THE PHYS/OTH QUALIFIED HEALTH NEW CAR DRIVER OVER &ABOVE THOSE USUALLY INCLD W THE OFFICE VISIT/OTH SER RENDERED (LIST DRUG,TRAYS,SUPP,OR MATERIAL PROVID) 2016 DoD BRIEF EMOTIONAL/BEHAVIOR AL ASSESSMENT (EG, DEPRESSION INVENTORY, ATTENTION-DEFICIT/ HYPERACTIVITY DISORDER [ADHD] SCALE), WITH SCORING AND DOCUMENTATION, PER STANDARDIZED INSTRUMENT 2016 DoD SUPP &MATERIAL (EXCEPT SPECTACLE),PROVID, THE PHYS/OTH QUALIFIED HEALTH NEW CAR DRIVER OVER &ABOVE THOSE USUALLY INCLD W THE OFFICE VISIT/OTH SER RENDERED (LIST DRUG,TRAYS,SUPP,OR MATERIAL PROVID) 2016 [facility] SCREENING TEST OF VISUAL ACUITY, QUANTITATIVE, BILATERAL 2016 DoD COMPUTERIZED CORNEAL TOPOGRAPHY, UNILATERAL OR BILATERAL, WITH INTERPRETATION AND REPORT 2015 [facility] DETERMINATION OF VENOUS PRESSURE 2015 DoD IMMUNIZATION ADMINISTRATION (INCLUDES PERCUTANEOUS, INTRADERMAL, SUBCUTANEOUS, OR INTRAMUSCULAR INJECTIONS); 1 VACCINE (SINGLE OR COMBINATION VACCINE/TOXOID) 2015 DoD Psychiatric Evaluation Explanation Of Exam Results Psychiatric Evaluation Explanation Of Exam Results 72732 2017 CARLOS ESCAMILLA [facility] Computerized Corneal Topography Computerized Corneal Topography 70836 2016 OSCAR ROLLINS Prescription And Fitting Bilateral Corneal Lenses (Not For Aphakia) Prescription And Fitting Bilateral Corneal Lenses (Not For Aphakia) 01590 2016 OSCAR ROLLINS Determination Of Refractive State Determination Of Refractive State 97194 2016 OSCAR ROLLINS Ophthalmological Prior Patient Start Comprehensive Care Ophthalmological Prior Patient Start Comprehensive Care 50988 2016 OSCAR ROLLINS Psychometric Emotional / Behavioral A e ment Psychometric Emotional / Behavioral Assessment 22640 2016 DAYRON FONTANA [facility] Psychiatric Diagnostic Evaluation Psychiatric Diagnostic Evaluation 53224 2016 DAYRON FONTANA [facility] Visual Function Screening Visual Function Screening 24341 2016 DARLENE CERNA [facility] Psychometric Emotional / Behavioral A e ment Psychometric Emotional / Behavioral Assessment 70167 2016 ALTEPETER CARLOS A [place] Psychiatric Diagnostic Evaluation Psychiatric Diagnostic Evaluation 56230 2016 ALTEPETER CARLOS A [place] Threshold Audiogram (Pure Tone) Automated Threshold Audiogram (Pure Tone) Automated 0208T 2016 MARIIA MAYO Physician Supervised Services Provision Of Special Supplies Physician Supervised Services Provision Of Special Supplies 22792 2016 MARIIA MAYO Physician Supervised Services Provision Of Special Supplies Physician Supervised Services Provision Of Special Supplies 20220 2016 MARIIA MAYO Threshold Audiogram (Pure Tone) Automated Threshold Audiogram (Pure Tone) Automated 0208T 2016 MARIIA MAYO Screening Test Of Visual Acuity, Quantitative, Bilateral Screening Test Of Visual Acuity, Quantitative, Bilateral 56480 2016 STEPHIE STRINGER Venous Pre ure Venous Pressure 82070 2016 STEPHIE STRINGER Computerized Corneal Topography Computerized Corneal Topography 04215 2015 BELL MARSHALL Prescription And Fitting Bilateral Corneal Lenses (Not For Aphakia) Prescription And Fitting Bilateral Corneal Lenses (Not For Aphakia) 46996 2015 BELL MARSHALL Spectacles Services Fitting Monofocal Except For Aphakia Spectacles Services Fitting Monofocal Except For Aphakia 57953 2015 BELL MARSHALL Determination Of Refractive State Determination Of Refractive State 71120 2015 BELL MARSHALL Ophthalmological New Patient Start Comprehensive Care Ophthalmological New Patient Start Comprehensive Care 88660 2015 BELL MARSHALL Screening Test Of Visual Acuity, Quantitative, Bilateral Screening Test Of Visual Acuity, Quantitative, Bilateral 82445 2015 STEPHIE STRINGER Venous Pre ure Venous Pressure 13456 2015 STEPHIE STRINGER Hepatitis B Vaccine (Active) Adult Dosage Hepatitis B Vaccine (Active) Adult Dosage 76882 2015 GORDY RAMÍREZ Hep B - Adult; Series #: 1; 1.0 mL; IM; Left Arm; [facility]: [employer]; Lot: [id number]; VIS given (Brianna: 04/05/11). DoD Immunization Administration By Injection, One Vaccine Immunization Administration By Injection, One Vaccine [id number] GORDY RAMÍREZ DoD Influenza Virus Vaccine Live Attenuated Intranasal Quadrivalent Influenza Virus Vaccine Live Attenuated Intranasal Quadrivalent 97034 2014 LEAH THOMPSON [facility] Immunization Admin By Intranasal / Oral Route One Vaccine Immunization Admin By Intranasal / Oral Route One Vaccine 79182 2014 LEAH THOMPSON [facility] Hepatitis B Vaccine (Active); Pediatric/Adolesce nt 3 Dose Schedule Hepatitis B Vaccine (Active); Pediatric/Adolesce nt 3 Dose Schedule 28548 2014 NYA SHEIKH [facility] Immunization Administration By Injection, One Vaccine Immunization Administration By Injection, One Vaccine [id number] NYA SHEIKH [facility] Injection, penicillin g benzathine, 100,000 units 2014 TRANG MENDIETA Visit for an IM injection of 1.2 million/units per 2 mL of Bicillin L-A (Penicillin G Benxathine injectable suspension). Was given in the Left upper quadrant, left buttock. Patient was observed for 15 min with no adverse reactions. DoD Immunization Administration By Injection, One Vaccine Immunization Administration By Injection, One Vaccine 604662014 TRANG MENDIETA [facility] Immunization Administration By Injection, Each Additional Vaccine Immunization Administration By Injection, Each Additional Vaccine 383592014 TRANG MENDIETA [facility] Tdap Vaccine Tdap Vaccine 597832014 TRANG MENDIETA Visit for an IM injection of 0.5mL of Boostrix (Tetanus and Diphtheria Toxoids and Acellular Pertussis). Was given in the Right Deltoid. Patient was observed for 15 min with no adverse reactions. [facility] Meningococcal Polysaccharide Diphtheria Toxoid Conjugate Vaccine 2014 TRANG MENDIETA Visit for an IM injection of 0.5mL of Meningococcal Vaccine (Menactra). Was given in the Left Deltoid. Patient was observed for 15 min with no adverse reactions. DoD Vaccines Viral Polio, Inactivated Vaccines Viral Polio, Inactivated 100522014 TRANG MENDIETA Visit for an IM injection of 0.5mL of IPOL (Poliovirus Vaccine Inactivated). Was given in the Right Deltoid. Patient was observed for 15 min with no adverse reactions. [facility] Hep B Vaccine (Active); Adolescent (2 Dose Schedule) Hep B Vaccine (Active); Adolescent (2 Dose Schedule) 66119 2014 TRANG MENDIETA Visit for an IM injection of 0.5mL of Hepatitis B (Engerix-B) pediatric dose. Was given in the Right Deltoid. Patient was observed for 15 min with no adverse reactions. [facility] Immunization Admin Intranasal / Oral Each Additional Vaccine Immunization Admin Intranasal / Oral Each Additional Vaccine 26049 2014 TRANG MENDIETA [facility] Vaccines Adenovirus Type 4 Live, For Oral Use Vaccines Adenovirus Type 4 Live, For Oral Use 25487 2014 TRANG MENDIETA A single vaccine dose adminstered orally. [facility] Vaccines Adenovirus Type 7 Live, For Oral Use Vaccines Adenovirus Type 7 Live, For Oral Use 04537 2014 TRANG MENDIETA A single vaccine dose adminstered orally. [facility] Physician Supervised Injection Intramuscular Antibiotic Physician Supervised Injection Intramuscular Antibiotic 73832 2014 TRANG MENDIETA [facility] Threshold Audiogram (Pure Tone) Automated Threshold Audiogram (Pure Tone) Automated 0208T 2014 RAMÓN YATES [facility] No data available for this section Ambulato ry Pharmacy Social History Combined list of available smoking, tobacco, and other social history from Department of Defense and Veterans Affairs facilities. Social History Type Response Date Comment Sour e Tobacco smoking status NHIS VA-TOBACCO USE FORMER CIGARETTES [facility] History of tobacco use MO-TOBACCO NEVER USED OTHER TYPE 03/[facility] [facility] Male 12/17/2016 Ambulatory Pha rmacy This section is an empty social history section. [facility] Sexual Orientation Ambula tory Pharmacy Gender identity [...] future care activities from Department of Veterans [facility] facilities. Additional future care activities may be listed in the Assessment and Plan section. Date/Time Care Activity Care Activity Detail Facili ty 04/07/2024 AMBULATORY - MEDICINE AMBULATORY - MEDICI [facility] 03/30/2024 Laboratory - Casting Machine Set Up Operator ry Order CBC AND DIFF (AUTO) BLOOD (LAV-BLOOD) [facility] [place] [facility] 03/30/2024 Laboratory - Casting Machine Set Up Operator ry Order BASIC METABOLIC PANEL (fasting) BLOOD (SST-SERUM) [facility] [place] [facility] 03/30/2024 Laboratory - Casting Machine Set Up Operator ry Order LIVER FUNCTION BLOOD (SST[facility]SERUM) [facility] 03/30/2024 Laboratory - Casting Machine Set Up Operator ry Order LIPID PANEL FASTING BLOOD (SST-SERUM) [facility] 03/30/2024 Laboratory - Casting Machine Set Up Operator ry Order TSH BLOOD (SST-SERUM) [facility] [facility] 03/30/2024 Laboratory - Casting Machine Set Up Operator ry Order URINALYSIS CLEAN CATCH [facility] 03/30/2024 Consult Order [facility] RTHO GENERAL Cons Gravity Prospecting Operator's Choice [facility] Functional Status Combined list of recent functional and cognitive assessments recorded at [facility] [employer] [facility] [place] Functional [place] Measurement (FIM) Scale: 1 = Total Assistance (Subject = 0% +), 2 = Maximal Assistance (Subject = 25% +), 3 = Moderate Assistance (Subject = 50% +), 4 = Minimal Assistance (Subject = 75% +), 5 = Supervision, 6 = Modified [place] (Device), 7 = Complete [place] (Timely, Safely). Assessment Date/Time Source Assessment Type Assessment Skill Assessment Score Assessment Details No data available for this section
== END 2024-04-07 10:24 | disposition home or self-care (01) ==
PROVIDERS: Visit Provider Physician Assistant
DX: S52.121A Displaced fracture of head of right radius, initial encounter for closed fracture (principal)
CPT/HCPCS: 99213

== ENCOUNTER → 2024-04-07 09:51 | Outpatient (BNV) | payer OTHER, SELFPAY | PROVIDERS: Visit Provider Radiology Diagnostic Radiology | DX: M25.521 Pain in right elbow (principal) | CPT/HCPCS: 73080 ==